=== PATIENT | male | born 1975 | race Caucasian/White ===

== ENCOUNTER 2020-10-30 07:36 | Outpatient (CLI) | payer MEDICARE, MEDICAID, SELFPAY | END 2020-10-30 07:37 | disposition home or self-care (01) | PROVIDERS: PCP Family Medicine; Visit Provider Family Medicine | DX: Z01.10 Encounter for examination of ears and hearing without abnormal findings (principal) | CPT/HCPCS: 99199 ==

== ENCOUNTER 2020-11-21 12:36 | Outpatient (CLI) | payer MEDICARE, MEDICAID, SELFPAY | END 2020-11-21 12:37 | disposition home or self-care (01) | PROVIDERS: PCP Family Medicine; Visit Provider Family Medicine | DX: H90.3 Sensorineural hearing loss, bilateral (principal) | CPT/HCPCS: 92553; 92555; 92567 ==

== ENCOUNTER 2021-12-07 08:17 | Outpatient (CLI) | payer MEDICARE, MEDICAID, SELFPAY | END 2021-12-07 08:18 | disposition home or self-care (01) | LOC: ANHAUDIO 08:19 | PROVIDERS: PCP Family Medicine; Visit Provider Family Medicine | DX: Z01.10 Encounter for examination of ears and hearing without abnormal findings (principal) | CPT/HCPCS: 92553; 92555; 92567 ==

== ENCOUNTER 2022-12-16 08:49 | Outpatient (CLI) | payer MEDICARE, MEDICAID, SELFPAY | END 2022-12-16 08:50 | disposition home or self-care (01) | LOC: ANHAUDIO 08:50 | PROVIDERS: PCP Family Medicine; Visit Provider Family Medicine | DX: H91.93 Unspecified hearing loss, bilateral (principal) | CPT/HCPCS: 92553; 92555; 92567 ==

== ENCOUNTER 2024-01-26 07:59 | Outpatient (CLI) | payer MEDICARE, MEDICAID, SELFPAY | END 2024-01-26 08:00 | disposition home or self-care (01) | LOC: ANHAUDIO 08:00 | PROVIDERS: PCP Family Medicine; Visit Provider Family Medicine | DX: Z01.10 Encounter for examination of ears and hearing without abnormal findings (principal); H90.3 Sensorineural hearing loss, bilateral; H61.23 Impacted cerumen, bilateral | CPT/HCPCS: 92553; 92555; 92567 ==

== ENCOUNTER 2025-01-31 08:48 | Outpatient (CLI) | payer MEDICARE, MEDICAID, SELFPAY ==
--- OUTSIDE RECORDS SUMMARY | 2025-01-31 08:55 | XMS_ITS ---
Author Organization Unknown Address [address] [place] [phone] Phone Care Team Providers Care Price Economist Name Role Phone CONSTANTIN SNEED Attending Unavailable KATHERIN Sanchez Primary Unavailable Immunization Immunization Date Status Additional Notes Code Code System pneumococcal polysaccharide PPV23 01/17/2012 Completed 33 CVX pneumococcal polysaccharide PPV23 06/17/2016 Completed 33 CVX pneumococcal polysaccharide PPV23 07/04/2018 Completed 33 CVX Tdap 06/30/2011 Completed 115 CVX Tdap 03/11/2021 Completed 115 CVX Influenza, split virus, trivalent, preservative 05/16/2024 Completed 141 CVX Influenza, split virus, quadrivalent, preservative 07/15/2017 Completed 158 C VX Influenza, split virus, quadrivalent, preservative 05/24/2018 Completed 158 C VX Influenza, split virus, quadrivalent, preservative 05/23/2019 Completed 158 C VX Influenza, split virus, quadrivalent, preservative 05/14/2020 Completed 158 C VX Influenza, split virus, quadrivalent, preservative 05/20/2021 Completed 158 C VX Influenza, split virus, quadrivalent, preservative 05/12/2022 Completed 158 C VX Influenza, split virus, quadrivalent, preservative 05/11/2023 Completed 158 C VX zoster recombinant 11/08/2024 Completed 187 CVX COVID-19, mRNA, LNP-S, PF, 1 00 mcg/0.5mL dose or 50 mcg/0.25mL dose 08/19/2021 Completed 207 CVX COVID-19, mRNA, LNP-S, PF, 3 0 mcg/0.3 mL dose 09/25/2020 Completed 208 CVX COVID-19, mRNA, LNP-S, PF, 3 0 mcg/0.3 mL dose 10/16/2020 Completed 208 CVX COVID-19, mRNA, LNP-S, bivalent, PF, 30 mcg/0.3 mL dose 11/18/2022 Completed 300 CVX Results COMPREHENSIVE METABOLIC PANE L - Collect Date/Time: 09/11/2024 07:45 [facility] ID: [id number] [address] [place], [place], [phone] LOINC: 69177-1 Test Value Unit Reference Range Code Code System Flag FASTING NO BUN 14 mg/dL L=7 H=20 3094-0 LOINC CREATININE 0.80 mg/dL L=0.66 H=1.25 2160-0 LOINC GLUCOSE 101 mg/dL L=74 H=106 2345-7 LOINC SODIUM 140 mmol/L L=132 H=144 2951-2 LOINC POTASSIUM 3.9 mmol/L L=3.5 H=5.1 2823-3 LOINC CHLORIDE 105 mmol/L L=98 H=107 2075-0 LOINC CO2 23.0 mmol/L L=22.0 H=30.0 8-9 LOINC ANION GAP 16 L=10 H=20 65611-5 LOINC OSMOLALITY 291 mOs/kG L=280 H=296 61329-5 LOINC BUN/CREAT 17.5 3097-3 LOINC CALCIUM 9.0 mg/dL L=8.3 H=10.5 75780-1 LOINC AST 39 U/L L=15 H=46 1920-8 LOINC ALT 33 U/L L=9 H=72 1742-6 LOINC ALKALINE PHOS 190 U/L L=38 H=126 6768-6 LOINC H TOTAL BILI 0.4 mg/dL L=0.2 H=1.3 1975-2 LOINC ALBUMIN 4.3 G/dL L=3.5 H=5.0 1751-7 LOINC TOTAL PROTEIN 6.3 g/L L=6.3 H=8.2 2885-2 LOINC A/G RATIO 2.2 98668-7 LOINC AGE 49 35194-9 LOINC eGFR NON-AFR 109 ml/min eGFR AFR AMER 132 ml/min TSH - Collect Date/Time: 03/2025 07:45 [facility] ID: [id number] [address] [place] [address], [phone] LOINC: 48245-4 Test Value Unit Reference Range Code Code System Flag TSH. 3.910 uIU/L L=0.470 H=4.680 06330-8 LOINC LIPID PANEL - Collect Date/T slime: 09/11/2024 07:45 [facility] ID: [id number] [address] [place] [address], [phone] LOINC: 29017-7 Test Value Unit Reference Range Code Code System Flag FASTING NO CHOLESTEROL 89 mg/dL L=0 H=200 2093-3 LOINC TRIGLYCERIDE 82 mg/dL L=0 H=150 2571-8 LOINC HDL 31 mg/dL L=40 H=60 2085-9 LOINC L LDL 41 mg/dL 9-1 LOINC 25 HYDROXY VITAMIN D - Colle ct Date/Time: 09/11/2024 07:45 [facility] ID: [id number] [address] [place] [address], [phone] LOINC: Test Value Unit Reference Range Code Code System Flag VITAMIN D 51.9 ng/ml L=30.0 H=100 78302-7 LOINC PSA-SCREENING - Collect Date /Time: 09/11/2024 07:45 [facility] ID: [id number] [place] [address], [phone] LOINC: 2857-1 Test Value Unit Reference Range Code Code System Flag PSA SCREEN 1.2 ng/mL L=0.0 H=4.0 2857-1 LOINC LAMICTAL LEVEL - Collect [place] e/Time: 09/11/2024 07:45 [facility] ID: [id number] [address] [place], [place], [phone] LOINC: 6948-4 Test Value Unit Reference Range Code Code System Flag Lamotrigine, Serum 8.4 2.0-20.0 6948-4 LOINC BK BY PCR - QUANT(PLASMA) (R EF) - Collect Date/Time: 09/11/2024 07:45 [facility] ID: [id number] [address] [place] [address], [phone] LOINC: 32448-2 Test Value Unit Reference Range Code Code System Flag BKV DNA, Quant PCR,Plasma Negative Negative 33052-4 LOINC log10 BKV DNA,Plasma TNP 82061-4 LOINC PTH - Collect Date/Time: 03/2025 07:45 [facility] ID: [id number] [address] [place] [address], [phone] LOINC: 2731-8 Test Value Unit Reference Range Code Code System Flag PTH, Intact 24 15-65 2731-8 LOINC CBC W/ DIFF - Collect Date/T slime: 09/11/2024 07:45 [facility] ID: [id number] [address] [place] [address], [phone] LOINC: 52753-3 Test Value Unit Reference Range Code Code System Flag WBC 6.5 10^3uL L=4.8 H=10.8 RBC 4.20 10^6uL L=4.60 H=6.20 L HEMOGLOBIN 12.7 g/dL L=14.0 H=18.0 718-7 LOINC L HEMATOCRIT 39.2 VOL% L=42.0 H=52.0 4544-3 LOINC L MCV 93.3 fL L=80.0 H=94.0 MCH 30.2 pg L=27.0 H=32.0 MCHC 32.4 g/dL L=32.0 H=36.0 PLATELETS 164 10^3uL L=100 H=400 92382-2 LOINC RDW 14.4 % L=11.7 H=15.5 %GRAN 73.6 % L=40.0 H=70.0 39903-3 LOINC H %LYMPH 16.8 % L=20.0 H=45.0 736-9 LOINC L %MONO 6.8 % L=2.0 H=10.0 36708-8 LOINC %EOS 2.3 % L=0.0 H=6.0 713-8 LOINC %BASO 0.2 % L=0.0 H=3.0 706-2 LOINC #NEUT 4.8 10^3uL L=1.9 H=7.6 74397-4 LOINC #LYMPH 1.1 10^3uL L=0.9 H=4.9 24092-7 LOINC #MONO 0.4 10^3uL L=0.1 H=0.9 00403-7 LOINC #EOS 0.2 10^3uL L=0.0 H=0.6 712-0 LOINC #BASO 0.01 10^3uL L=0.00 H=0.10 11448-5 LOINC #IM GRANS 0.0 10^3uL L=0.0 H=7.0 33072-9 LOINC %IM GRANS 0.3 % L=0.0 H=5.0 15295-2 LOINC %NRB 0.0 L=0.0 H=0.2 89886-0 LOINC #NRB 0.000 L=0.000 H=0.012 71210-3 LOINC MANUAL DIFF NOT INDICATED RBC MORPH NOT INDICATED FK-506 - Collect Date/Time: 09/11/2024 07:45 [facility] ID: [id number] [address] [place], [place], [phone] LOINC: 67277-3 Test Value Unit Reference Range Code Code System Flag Tacrolimus (FK506), Blood 10.4 2.0-20.0 28450-8 LOINC PHOSPHORUS - Collect Date/Ti me: 09/11/2024 07:45 [facility] ID: [id number] [address] [place], [place], [phone] LOINC: 2777-1 Test Value Unit Reference Range Code Code System Flag PHOSPHORUS 2.7 mg/dL L=2.5 H=4.9 2777-1 LOINC BK VIRUS - URINE QUANT BY PC R(REF) - Collect Date/Time: 09/11/2024 07:00 [facility] ID: [id number] [address] [place], [place], [phone] LOINC: 78836-2 Test Value Unit Reference Range Code Code System Flag BKV DNA, Quant PCR, Urine 1740 Negative 46382-7 LOINC log10 BKV DNA, Urine 3.241 23723-3 LOINC URINALYSIS w/Microscopy/C&S if indicated - Collect Date/Time: 09/11/2024 07:00 [facility] ID: [id number] [address] [place], [place], [phone] LOINC: 54392-7 Test Value Unit Reference Range Code Code System Flag UR SOURCE CLEAN CATCH 02790-0 LOINC COLOR YELLOW YELLOW 5778-6 LOINC CLARITY SL CLOUDY CLEAR 25873-9 LOINC SPEC GRAVITY 1.015 1.000-1.030 5811-5 LOINC PH 6.0 5.0 - 6.5 5803-2 LOINC LEUK EST NEGATIVE NEGATIVE 5799-2 LOINC NITRATE NEGATIVE NEGATIVE PROTEIN NEGATIVE NEGATIVE 5804-0 LOINC GLUCOSE NEGATIVE NEGATIVE 29305-6 LOINC KETONES NEGATIVE NEGATIVE 76183-7 LOINC UROBILINOGEN 0.2 0.2 - 1.0 5818-0 LOINC BILIRUBIN NEGATIVE NEGATIVE 92488-9 LOINC BLOOD 3+ NEGATIVE 22338-6 LOINC WBC 0-2 0 - 2 10689-2 LOINC RBC 10-20 0 - 2 03439-5 LOINC A EPITHELIAL RARE RARE-FEW 18456-7 LOINC BACTERIA NONE SEEN NONE SEEN 36365-5 LOINC MUCUS NONE SEEN NONE SEEN 8247-9 LOINC YEAST NOT PRESENT NOT PRESENT 29715-7 LOINC TRICHOMONAS NOT PRESENT NOT PRESENT 70516-8 LOINC SPERMATOZOA NOT PRESENT NOT PRESENT 21286-2 LOINC CASTS NOT PRESENT 32449-6 LOINC CRYSTALS NOT PRESENT 83063-6 LOINC CULTURE? NO 8251-1 LOINC DIAGNOSIS N/A MICROALBUMIN - Collect Date/ Time: 09/11/2024 07:00 [facility] ID: [id number] [address] [place], [place], [phone] LOINC: 03274-5 Test Value Unit Reference Range Code Code System Flag MICROALBUMIN 50.9 mg/L L=0.0 H=16.7 85280-6 LOINC H UR CREATININE 55.60 mg/dL L=30.00 H=125 2161-8 LOINC MA/CR 91.5 mg/gCR Social History Type Status Start Date End Date Code Code Syst em Smoking History Never smoker (Never Smoked) [id number] SNOMED CT Sex Male Medications Medication Start Date End Date Route Frequency Dose Code Code System Medication Instructions Home Meds Calcitriol 0.25MCG Oral Capsule, Liquid Filled 10/02/2021 Unknown ORAL THREE TIMES EVERY WEEK 0.25 MCG 320890 RxNorm TAKE 0.25 MCG ORAL THREE TIMES EVERY WEEK Fish Oil 1200 MG Oral Capsule, Liquid Filled 10/02/2021 Unknown ORAL TWICE A DAY 1200 MG 268107 RxNorm TAKE 1200 MG ORAL TWICE A DAY Metoprolol Succinate 25MG Oral Tablet, Extended Release 10/02/2021 Unknown ORAL TWICE A DAY 25 MILLIGRAMS 758348 RxNorm TAKE 25 MILLIGRAMS ORAL TWICE A DAY Mycophenolate Mofetil 250MG Oral Capsule 10/02/2021 Unknown ORAL TWICE A DAY 250 MILLIGRAMS 926088 RxNorm TAKE 250 MILLIGRAMS ORAL TWICE A DAY Mycophenolate Mofetil 500MG Oral Tablet 10/02/2021 Unknown ORAL TWICE A DAY 500 MILLIGRAMS 851699 RxNorm TAKE 500 MILLIGRAMS ORAL TWICE A DAY Pantoprazole Sodium 20 MG Oral Tablet, Delayed Release 10/02/2021 Unknown ORAL ONCE A DAY 20 MG 219757 RxNorm TAKE 20 MG ORAL ONCE A DAY Sensipar 30MG Oral Tablet 10/02/2021 Unknown ORAL ONCE A DAY 30 MILLIGRAMS 903741 RxNorm TAKE 30 MILLIGRAMS ORAL ONCE A DAY Sertraline 50MG Oral Tablet 10/02/2021 Unknown ORAL TWICE A DAY 50 MILLIGRAMS 778923 RxNorm TAKE 50 MILLIGRAMS ORAL TWICE A DAY Tacrolimus 0.5MG Oral Capsule 10/02/2021 Unknown ORAL ONCE A DAY 0.5 MILLIGRAMS 216419 RxNorm TAKE 0.5 MILLIGRAMS ORAL ONCE A DAY Tacrolimus 1MG Oral Capsule 10/02/2021 Unknown ORAL ONCE A DAY 1 MILLIGRAMS 919368 RxNorm TAKE 1 MILLIGRAMS ORAL ONCE A DAY Tylenol 325MG Oral Tablet 10/02/2021 Unknown ORAL NEEDED EVERY 4 HOURS 2 TABLET 255794 RxNorm TAKE 2 TABLET ORAL NEEDED EVERY 4 HOURS Vitamin D3 5000 IU Oral Capsule, Liquid Filled 10/02/2021 Unknown ORAL ONCE A DAY 5000 IU RxNorm TAKE 5000 IU ORAL ONCE A DAY lamoTRIgine 100MG Oral Tablet 10/02/2021 Unknown ORAL ONCE A DAY 200 MILLIGRAMS 19831012 RxNorm TAKE 200 MILLIGRAMS ORAL ONCE A DAY lamoTRIgine 100MG Oral Tablet 10/02/2021 Unknown ORAL AT BEDTIME 100 MILLIGRAMS 19831012 RxNorm TAKE 100 MILLIGRAMS ORAL AT BEDTIME predniSONE 5MG Oral Tablet 10/02/2021 Unknown ORAL ONCE A DAY 5 MILLIGRAMS 091606 RxNorm TAKE 5 MILLIGRAMS ORAL ONCE A DAY risperiDONE 2MG Oral Tablet 10/02/2021 Unknown ORAL TWICE A DAY 5 MILLIGRAMS 309100 RxNorm TAKE 5 MILLIGRAMS ORAL TWICE A DAY Hospital Discharge Instructions Should you have any questions prior to discharge, please contact a member of your healthcare team. If you have left the hospital and have any questions, please contact your primary care physician. 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
--- OUTSIDE RECORDS SUMMARY | 2025-01-31 08:55 | XMS_ITS ---
Author Organization Unknown Address [address] [place] [phone] Phone Care Team Providers Care Electrician Master Name Role Phone CONSTANTIN SNEED Attending Unavailable [...] mL dose 11/18/2022 Completed 300 CVX Results LAMICTAL LEVEL - Collect [place] e/Time: 01/14/2025 07:25 [facility] ID: [id number] [place] [address], [phone] LOINC: 6948-4 Test Value Unit Reference Range Code Code System Flag Lamotrigine, Serum 9.7 2.0-20.0 6948-4 LOINC FK-506 - Collect Date/Time: 01/14/2025 07:25 [facility] ID: [id number] [place] [address], [phone] LOINC: 84358-6 Test Value Unit Reference Range Code Code System Flag Tacrolimus (FK506), Blood 10.0 5.0-20.0 40835-1 LOINC CBC W/ DIFF - Collect Date/T slime: 01/14/2025 07:25 [facility] ID: [id number] [place] [address], [phone] LOINC: 73494-2 Test Value Unit Reference Range Code Code System Flag WBC 5.6 10^3uL L=4.8 H=10.8 RBC 4.27 10^6uL L=4.60 H=6.20 L HEMOGLOBIN 12.6 g/dL L=14.0 H=18.0 718-7 LOINC L HEMATOCRIT 40.0 VOL% L=42.0 H=52.0 4544-3 LOINC L MCV 93.7 fL L=80.0 H=94.0 MCH 29.5 pg L=27.0 H=32.0 MCHC 31.5 g/dL L=32.0 H=36.0 L PLATELETS 187 10^3uL L=100 H=400 07839-3 LOINC RDW 13.6 % L=11.7 H=15.5 %GRAN 66.6 % L=40.0 H=70.0 12813-8 LOINC %LYMPH 21.9 % L=20.0 H=45.0 736-9 LOINC %MONO 8.4 % L=2.0 H=10.0 80634-5 LOINC %EOS 2.5 % L=0.0 H=6.0 713-8 LOINC %BASO 0.2 % L=0.0 H=3.0 706-2 LOINC #NEUT 3.7 10^3uL L=1.9 H=7.6 75570-7 LOINC #LYMPH 1.2 10^3uL L=0.9 H=4.9 15633-5 LOINC #MONO 0.5 10^3uL L=0.1 H=0.9 79360-4 LOINC #EOS 0.1 10^3uL L=0.0 H=0.6 712-0 LOINC #BASO 0.01 10^3uL L=0.00 H=0.10 70894-3 LOINC #IM GRANS 0.0 10^3uL L=0.0 H=7.0 55870-7 LOINC %IM GRANS 0.4 % L=0.0 H=5.0 57394-9 LOINC %NRB 0.0 L=0.0 H=0.2 21592-1 LOINC #NRB 0.000 L=0.000 H=0.012 67795-8 LOINC MANUAL DIFF NOT INDICATED RBC MORPH NOT INDICATED BK BY PCR - QUANT(PLASMA) (R EF) - Collect Date/Time: 01/14/2025 07:25 [facility] ID: [id number] [address] [place], [place], [phone] LOINC: 37887-0 Test Value Unit Reference Range Code Code System Flag BKV DNA, Quant PCR,Plasma Negative Negative 73427-0 LOINC log10 BKV DNA,Plasma TNP 32169-3 LOINC RENAL FUNCTION PANEL - Colle ct Date/Time: 01/14/2025 07:25 [facility] ID: [id number] [place], [place], [id number] LOINC: 15517-6 Test Value Unit Reference Range Code Code System Flag FASTING? NO BUN 18 mg/dL L=7 H=20 3094-0 LOINC CREATININE 0.80 mg/dL L=0.66 H=1.25 2160-0 LOINC GLUCOSE 113 mg/dL L=74 H=106 2345-7 LOINC H CALCIUM 8.7 mg/dL L=8.3 H=10.5 87978-9 LOINC SODIUM 140 mmol/L L=132 H=144 2951-2 LOINC POTASSIUM 3.9 mmol/L L=3.5 H=5.1 2823-3 LOINC CHLORIDE 108 mmol/L L=98 H=107 2075-0 LOINC H CO2 20.0 mmol/L L=22.0 H=30.0 2028-9 LOINC L ANION GAP 16 L=10 H=20 19901-3 LOINC OSMOLALITY 293 mOs/kG L=280 H=296 46916-9 LOINC BUN/CREAT 22.5 3097-3 LOINC PHOSPHORUS 2.9 mg/dL L=2.5 H=4.9 2777-1 LOINC ALBUMIN 4.1 G/dL L=3.5 H=5.0 1751-7 LOINC AGE 49 63240-7 LOINC eGFR NON-AFR 109 ml/min eGFR AFR AMER 132 ml/min BK VIRUS - URINE QUANT BY SANTIAGO Guajardo(REF) - Collect Date/Time: 01/14/2025 06:00 [facility] ID: [id number] [place], [place], [phone] LOINC: 87096-4 Test Value Unit Reference Range Code Code System Flag BKV DNA, Quant PCR, Urine 576 Negative 27979-3 LOINC log10 BKV DNA, Urine 2.760 30942-9 LOINC MICROALBUMIN - Collect Date/ Time: 01/14/2025 06:00 [facility] ID: [id number] [place], [place], [id number] LOINC: 06217-9 Test Value Unit Reference Range Code Code System Flag MICROALBUMIN 26.3 mg/L L=0.0 H=16.7 33528-1 LOINC H UR CREATININE 101.80 mg/dL L=30.00 H=125 2161-8 LOINC MA/CR 25.8 mg/gCR Social History Type Status Start Date End Date Code Code Syst em Smoking History Never smoker (Never Smoked) [id number] SNOMED CT Sex Male Medications Medication Start Date End Date Route Frequency Dose Code Code System Medication Instructions Home Meds Calcitriol 0.25MCG Oral Capsule, Liquid Filled 10/02/2021 Unknown ORAL THREE TIMES EVERY WEEK 0.25 MCG 078187 RxNorm TAKE 0.25 MCG ORAL THREE TIMES EVERY WEEK Fish Oil 1200 MG Oral Capsule, Liquid Filled 10/02/2021 Unknown ORAL TWICE A DAY 1200 MG 666131 RxNorm TAKE 1200 MG ORAL TWICE A DAY Metoprolol Succinate 25MG Oral Tablet, Extended Release 10/02/2021 Unknown ORAL TWICE A DAY 25 MILLIGRAMS 828084 RxNorm TAKE 25 MILLIGRAMS ORAL TWICE A DAY Mycophenolate Mofetil 250MG Oral Capsule 10/02/2021 Unknown ORAL TWICE A DAY 250 MILLIGRAMS 973894 RxNorm TAKE 250 MILLIGRAMS ORAL TWICE A DAY Mycophenolate Mofetil 500MG Oral Tablet 10/02/2021 Unknown ORAL TWICE A DAY 500 MILLIGRAMS 468512 RxNorm TAKE 500 MILLIGRAMS ORAL TWICE A DAY Pantoprazole Sodium 20 MG Oral Tablet, Delayed Release 10/02/2021 Unknown ORAL ONCE A DAY 20 MG 541585 RxNorm TAKE 20 MG ORAL ONCE A DAY Sensipar 30MG Oral Tablet 10/02/2021 Unknown ORAL ONCE A DAY 30 MILLIGRAMS 413664 RxNorm TAKE 30 MILLIGRAMS ORAL ONCE A DAY Sertraline 50MG Oral Tablet 10/02/2021 Unknown ORAL TWICE A DAY 50 MILLIGRAMS 243104 RxNorm TAKE 50 MILLIGRAMS ORAL TWICE A DAY Tacrolimus 0.5MG Oral Capsule 10/02/2021 Unknown ORAL ONCE A DAY 0.5 MILLIGRAMS 280934 RxNorm TAKE 0.5 MILLIGRAMS ORAL ONCE A DAY Tacrolimus 1MG Oral Capsule 10/02/2021 Unknown ORAL ONCE A DAY 1 MILLIGRAMS 19830311 RxNorm TAKE 1 MILLIGRAMS ORAL ONCE A DAY Tylenol 325MG Oral Tablet 10/02/2021 Unknown ORAL NEEDED EVERY 4 HOURS 2 TABLET 429808 RxNorm TAKE 2 TABLET ORAL NEEDED EVERY [...] Unknown ORAL ONCE A DAY 5 MILLIGRAMS 078778 RxNorm TAKE 5 MILLIGRAMS ORAL ONCE A DAY risperiDONE 2MG Oral Tablet 10/02/2021 Unknown ORAL TWICE A DAY 5 MILLIGRAMS 909602 RxNorm TAKE 5 MILLIGRAMS ORAL TWICE A [...] System CIPROFLOXACIN Active 2551 RxNorm PARICALCITOL Active 76306 RxNorm ZEMPLAR Active 302427 RxNorm Plan of Treatment Bone Density Dexa 11/26/2022 Bone Density Dexa 12/14/2024 Encounters Encounter Diagnosis Start Date Code Code 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
--- OUTSIDE RECORDS SUMMARY | 2025-01-31 08:56 | XMS_ITS ---
Author Organization Unknown Address [address] [place] [phone] Phone Care Team Providers Care Doctor Of Audiology Name Role Phone CONSTANTIN SNEED Attending Unavailable [...] mL dose 11/18/2022 Completed 300 CVX Results RENAL FUNCTION PANEL - Colle ct Date/Time: 02/28/2024 07:00 [facility] ID: [id number] [address] [place], [place], [phone] LOINC: 89749-9 Test Value Unit Reference Range Code Code System Flag FASTING? YES BUN 20 mg/dL L=7 H=20 3094-0 LOINC CREATININE 0.80 mg/dL L=0.66 H=1.25 2160-0 LOINC GLUCOSE 80 mg/dL L=74 H=106 2345-7 LOINC CALCIUM 9.1 mg/dL L=8.3 H=10.5 32585-3 LOINC SODIUM 139 mmol/L L=132 H=144 2951-2 LOINC POTASSIUM 4.0 mmol/L L=3.5 H=5.1 2823-3 LOINC CHLORIDE 108 mmol/L L=98 H=107 2075-0 LOINC H CO2 26.0 mmol/L L=22.0 H=30.0 2028-9 LOINC ANION GAP 9 L=10 H=20 11789-0 LOINC L BUN/CREAT 25.0 3097-3 LOINC PHOSPHORUS 3.1 mg/dL L=2.5 H=4.9 2777-1 LOINC ALBUMIN 3.8 G/dL L=3.5 H=5.0 1751-7 LOINC AGE 48 27835-6 LOINC eGFR NON-AFR 109 ml/min eGFR AFR AMER 132 ml/min LAMICTAL LEVEL - Collect [place] e/Time: 02/28/2024 07:00 [facility] ID: [id number] [address] [place], [place], [phone] LOINC: 6948-4 Test Value Unit Reference Range Code Code System Flag Lamotrigine, Serum 7.9 2.0-20.0 6948-4 LOINC FK-506 - Collect Date/Time: 02/28/2024 07:00 [facility] ID: [id number] [address] [place] [address], [phone] LOINC: 57605-6 Test Value Unit Reference Range Code Code System Flag Tacrolimus (FK506), Blood 6.8 2.0-20.0 13001-0 LOINC BK BY PCR - QUANT(PLASMA) (R EF) - Collect Date/Time: 02/28/2024 07:00 [facility] ID: [id number] [address] [place] [address], [id number] LOINC: 11120-9 Test Value Unit Reference Range Code Code System Flag BKV DNA, Quant PCR,Plasma Negative Negative 60180-8 LOINC log10 BKV DNA,Plasma TNP 43872-0 LOINC BK VIRUS - URINE QUANT BY PC R(REF) - Collect Date/Time: 02/28/2024 07:00 [facility] ID: [id number] [address] [place] [address], [phone] LOINC: 04410-5 Test Value Unit Reference Range Code Code System Flag BKV DNA, Quant PCR, Urine 5840 Negative 64531-1 LOINC log10 BKV DNA, Urine 3.766 12927-0 LOINC MICROALBUMIN - Collect Date/ Time: 02/28/2024 07:00 [facility] ID: [id number] [address] [place] [address], [phone] LOINC: 42636-1 Test Value Unit Reference Range Code Code System Flag MICROALBUMIN 28.8 mg/L L=0.0 H=16.7 43264-3 LOINC H UR CREATININE 82.50 mg/dL L=30.00 H=125 2161-8 LOINC MA/CR 34.9 mg/gCR CBC W/ DIFF - Collect Date/T slime: 02/28/2024 07:00 [facility] ID: [id number] [address] [place], [place], [phone] LOINC: 46885-1 Test Value Unit Reference Range Code Code System Flag WBC 5.0 10^3uL L=4.8 H=10.8 RBC 3.91 10^6uL L=4.60 H=6.20 L HEMOGLOBIN 11.7 g/dL L=14.0 H=18.0 718-7 LOINC L HEMATOCRIT 36.1 VOL% L=42.0 H=52.0 4544-3 LOINC L MCV 92.3 fL L=80.0 H=94.0 MCH 29.9 pg L=27.0 H=32.0 MCHC 32.4 g/dL L=32.0 H=36.0 PLATELETS 201 10^3uL L=100 H=400 14903-7 LOINC RDW 13.3 % L=11.7 H=15.5 %GRAN 62.3 % L=40.0 H=70.0 10938-6 LOINC %LYMPH 24.8 % L=20.0 H=45.0 736-9 LOINC %MONO 9.1 % L=2.0 H=10.0 21624-1 LOINC %EOS 3.0 % L=0.0 H=6.0 713-8 LOINC %BASO 0.2 % L=0.0 H=3.0 706-2 LOINC #NEUT 3.1 10^3uL L=1.9 H=7.6 19414-2 LOINC #LYMPH 1.3 10^3uL L=0.9 H=4.9 18219-5 LOINC #MONO 0.5 10^3uL L=0.1 H=0.9 21712-9 LOINC #EOS 0.2 10^3uL L=0.0 H=0.6 712-0 LOINC #BASO 0.01 10^3uL L=0.00 H=0.10 68967-7 LOINC #IM GRANS 0.0 10^3uL L=0.0 H=7.0 14522-3 LOINC %IM GRANS 0.6 % L=0.0 H=5.0 32801-7 LOINC %NRB 0.0 L=0.0 H=0.2 93055-3 LOINC #NRB 0.000 L=0.000 H=0.012 21239-9 LOINC MANUAL DIFF NOT INDICATED RBC MORPH NOT INDICATED Social History Type Status Start Date End Date Code Code Syst em Smoking History Never smoker (Never Smoked) 538040876 SNOMED CT Sex Male Medications Medication Start Date End Date Route Frequency Dose Code Code System Medication Instructions Home Meds Calcitriol 0.25MCG Oral Capsule, Liquid Filled 10/02/2021 Unknown ORAL THREE TIMES EVERY WEEK 0.25 MCG 402007 RxNorm TAKE 0.25 MCG ORAL THREE TIMES EVERY WEEK Fish Oil 1200 MG Oral Capsule, Liquid Filled 10/02/2021 Unknown ORAL TWICE A DAY 1200 MG 920663 RxNorm TAKE 1200 MG ORAL TWICE A DAY Metoprolol Succinate 25MG Oral Tablet, Extended Release 10/02/2021 Unknown ORAL TWICE A DAY 25 MILLIGRAMS 334885 RxNorm TAKE 25 MILLIGRAMS ORAL TWICE A DAY Mycophenolate Mofetil 250MG Oral Capsule 10/02/2021 Unknown ORAL TWICE A DAY 250 MILLIGRAMS 741136 RxNorm TAKE 250 MILLIGRAMS ORAL TWICE A DAY Mycophenolate Mofetil 500MG Oral Tablet 10/02/2021 Unknown ORAL TWICE A DAY 500 MILLIGRAMS 667896 RxNorm TAKE 500 MILLIGRAMS ORAL TWICE A DAY Pantoprazole Sodium 20 MG Oral Tablet, Delayed Release 10/02/2021 Unknown ORAL ONCE A DAY 20 MG 954934 RxNorm TAKE 20 MG ORAL ONCE A DAY Sensipar 30MG Oral Tablet 10/02/2021 Unknown ORAL ONCE A DAY 30 MILLIGRAMS 155144 RxNorm TAKE 30 MILLIGRAMS ORAL ONCE A DAY Sertraline 50MG Oral Tablet 10/02/2021 Unknown ORAL TWICE A DAY 50 MILLIGRAMS 085556 RxNorm TAKE 50 MILLIGRAMS ORAL TWICE A DAY Tacrolimus 0.5MG Oral Capsule 10/02/2021 Unknown ORAL ONCE A DAY 0.5 MILLIGRAMS 315821 RxNorm TAKE 0.5 MILLIGRAMS ORAL ONCE A DAY Tacrolimus 1MG Oral Capsule 10/02/2021 Unknown ORAL ONCE A DAY 1 MILLIGRAMS 148670 RxNorm TAKE 1 MILLIGRAMS ORAL ONCE A DAY Tylenol 325MG Oral Tablet 10/02/2021 Unknown ORAL NEEDED EVERY 4 HOURS 2 TABLET 906558 RxNorm TAKE 2 TABLET ORAL NEEDED EVERY [...] Unknown ORAL ONCE A DAY 5 MILLIGRAMS 932883 RxNorm TAKE 5 MILLIGRAMS ORAL ONCE A DAY risperiDONE 2MG Oral Tablet 10/02/2021 Unknown ORAL TWICE A DAY 5 MILLIGRAMS 808739 RxNorm TAKE 5 MILLIGRAMS ORAL TWICE A [...] System CIPROFLOXACIN Active 2551 RxNorm PARICALCITOL Active 32812 RxNorm ZEMPLAR Active 062917 RxNorm Plan of Treatment Bone Density Dexa 11/26/2022 Bone Density Dexa 12/14/2024 Encounters Encounter Diagnosis Start Date Code Code Sys tem Transplanted kidney present 02/28/2024 [id number] SNOMED-CT Personal Care Team Section Performer Name Performer Role Active Date Inactive Da te
--- OUTSIDE RECORDS SUMMARY | 2025-01-31 08:56 | XMS_ITS ---
Author Organization Unknown Address [address] [place] [phone] Phone Care Team Providers Care Illuminating Engineer Name Role Phone CONSTANTIN SNEED Attending Unavailable [...] COMPREHENSIVE METABOLIC PANE L - Collect Date/Time: 09/13/2023 07:35 [facility] ID: [id number] [address] [place], [place], [phone] LOINC: 41458-5 Test Value Unit Reference Range Code Code System Flag FASTING NO BUN 17 mg/dL L=7 H=20 3094-0 LOINC CREATININE 0.80 mg/dL L=0.66 H=1.25 2160-0 LOINC GLUCOSE 95 mg/dL L=74 H=106 2345-7 LOINC SODIUM 142 mmol/L L=132 H=144 2951-2 LOINC POTASSIUM 3.8 mmol/L L=3.5 H=5.1 2823-3 LOINC CHLORIDE 110 mmol/L L=98 H=107 2075-0 LOINC H CO2 20.0 mmol/L L=22.0 H=30.0 2028-9 LOINC L ANION GAP 16 L=10 H=20 85185-6 LOINC OSMOLALITY 295 mOs/kG L=280 H=296 41824-8 LOINC BUN/CREAT 21.3 3097-3 LOINC CALCIUM 9.2 mg/dL L=8.3 H=10.5 72722-4 LOINC AST 41 U/L L=15 H=46 1920-8 LOINC ALT 30 U/L L=9 H=72 1742-6 LOINC ALKALINE PHOS 171 U/L L=38 H=126 6768-6 LOINC H TOTAL BILI 0.4 mg/dL L=0.2 H=1.3 1975-2 LOINC ALBUMIN 4.0 G/dL L=3.5 H=5.0 1751-7 LOINC TOTAL PROTEIN 6.5 g/L L=6.3 H=8.2 2885-2 LOINC A/G RATIO 1.6 38815-8 LOINC AGE 48 18830-9 LOINC eGFR NON-AFR 109 ml/min eGFR AFR AMER 132 ml/min LIPID PANEL - Collect Date/T slime: 09/13/2023 07:35 [facility] ID: [id number] [address] [place] [address], [id number] LOINC: 32952-9 Test Value Unit Reference Range Code Code System Flag FASTING NO CHOLESTEROL 90 mg/dL L=0 H=200 3-3 LOINC TRIGLYCERIDE 73 mg/dL L=0 H=150 1-8 LOINC HDL 27 mg/dL L=40 H=60 2084-9 LOINC L LDL 49 mg/dL 2088-1 LOINC TSH - Collect Date/Time: 05/2024 07:35 [facility] ID: [id number] [address] [place] [address], [id number] LOINC: 02506-7 Test Value Unit Reference Range Code Code System Flag TSH. 3.500 uIU/L L=0.470 H=4.680 65066-3 LOINC PHOSPHORUS - Collect Date/Ti me: 09/13/2023 07:35 [facility] ID: [id number] [address] [place] [address], [id number] LOINC: 2777-1 Test Value Unit Reference Range Code Code System Flag PHOSPHORUS 2.8 mg/dL L=2.5 H=4.9 2777-1 LOINC PTH - Collect Date/Time: 05/2024 07:35 [facility] ID: [id number] [address] [place] [address], [phone] LOINC: 2731-8 Test Value Unit Reference Range Code Code System Flag PTH, Intact 58 15-65 2731-8 LOINC LAMICTAL LEVEL - Collect Zurdo e/Time: 09/13/2023 07:35 [facility] ID: [id number] [place], [place], [id number] LOINC: 6948-4 Test Value Unit Reference Range Code Code System Flag Lamotrigine, Serum 6.8 2.0-20.0 6948-4 LOINC PROTEIN ELECTROPHORESIS SERU M - Collect Date/Time: 09/13/2023 07:35 [facility] ID: [id number] [place], [place], [id number] LOINC: 2885-2 Test Value Unit Reference Range Code Code System Flag Protein, Total 6.1 6.0-8.5 2885-2 LOINC Albumin 3.7 2.9-4.4 2862-1 LOINC Opqls-2-Xnhocspu 0.3 0.0-0.4 2865-4 LOINC Udhjq-5-Gdnmvunc 0.6 0.4-1.0 2868-8 LOINC Beta Globulin 0.7 0.7-1.3 2871-2 LOINC Gamma Globulin 0.8 0.4-1.8 2874-6 LOINC M-Jose Not Observed Not Observed 33921-9 LOINC Globulin, Total 2.4 2.2-3.9 09401-3 LOINC A/G Ratio 1.5 0.7-1.7 1759-0 LOINC Please note: COMMENT 72285-6 LOINC P E Interpretation, S COMMENT 68234-5 LOINC PDF . 22781-5 LOINC FREE LIGHT CHAINS SERUM - Co llect Date/Time: 09/13/2023 07:35 [facility] ID: [id number] [place], [place], [id number] LOINC: 11349-9 Test Value Unit Reference Range Code Code System Flag Free Gallup Lt Chains,S 45.0 3.3-19.4 27505-1 LOINC H Free Lambda Lt Chains,S 43.1 5.7-26.3 45016-0 LOINC H Gallup/Lambda Ratio,S 1.04 0.26-1.65 52323-8 LOINC IMMUNOGLOBULINS QUANT IGA & IGG & IGM - Collect Date/Time: 09/13/2023 07:35 [facility] ID: [id number] [address] [place] [address], [id number] LOINC: Test Value Unit Reference Range Code Code System Flag Immunoglobulin A, Qn,Serum 135 90-386 2458-8 LOINC Immunoglobulin G, Qn,Serum 262 909-4169 2465-3 LOINC Immunoglobulin M, Qn,Serum 102 20-172 2472-9 LOINC BK BY PCR - QUANT(PLASMA) (R EF) - Collect Date/Time: 09/13/2023 07:35 [facility] ID: [id number] [address] [place] [address], [id number] LOINC: 03081-2 Test Value Unit Reference Range Code Code System Flag BKV DNA, Quant PCR,Plasma Negative Negative 69532-9 LOINC log10 BKV DNA,Plasma TNP 13158-7 LOINC BK VIRUS - URINE QUANT BY PC R(REF) - Collect Date/Time: 09/13/2023 07:35 [facility] ID: [id number] [address] [place] [address], [id number] LOINC: 07241-3 Test Value Unit Reference Range Code Code System Flag BKV DNA, Quant PCR, Urine 361 Negative 98353-2 LOINC log10 BKV DNA, Urine 2.558 82041-4 LOINC FK-506 - Collect Date/Time: 09/13/2023 07:35 [facility] ID: [id number] [address] [place] [address], [id number] LOINC: 54755-4 Test Value Unit Reference Range Code Code System Flag Tacrolimus (FK506), Blood 7.4 2.0-20.0 53240-6 LOINC 25 HYDROXY VITAMIN D - Colle ct Date/Time: 09/13/2023 07:35 [facility] ID: [id number] [address] [place], [place], [id number] LOINC: Test Value Unit Reference Range Code Code System Flag VITAMIN D 67.9 ng/ml L=30.0 H=100 09289-2 LOINC MICROALBUMIN - Collect Date/ Time: 09/13/2023 07:35 [facility] ID: [id number] [address] [place] [address], [id number] LOINC: 01459-5 Test Value Unit Reference Range Code Code System Flag MICROALBUMIN 17.2 mg/L L=0.0 H=16.7 26819-4 LOINC H UR CREATININE 96.20 mg/dL L=30.00 H=125 2161-8 LOINC MA/CR 17.9 mg/gCR CBC W/ DIFF - Collect Date/T slime: 09/13/2023 07:35 [facility] ID: [id number] [address] [place] [address], [phone] LOINC: 83097-7 Test Value Unit Reference Range Code Code System Flag WBC 4.0 10^3uL L=4.8 H=10.8 L RBC 4.18 10^6uL L=4.60 H=6.20 L HEMOGLOBIN 12.6 g/dL L=14.0 H=18.0 718-7 LOINC L HEMATOCRIT 38.9 VOL% L=42.0 H=52.0 4544-3 LOINC L MCV 93.1 fL L=80.0 H=94.0 MCH 30.1 pg L=27.0 H=32.0 MCHC 32.4 g/dL L=32.0 H=36.0 PLATELETS 177 10^3uL L=100 H=400 57057-4 LOINC RDW 13.3 % L=11.7 H=15.5 %GRAN 63.8 % L=40.0 H=70.0 11590-5 LOINC %LYMPH 22.1 % L=20.0 H=45.0 736-9 LOINC %MONO 10.3 % L=2.0 H=10.0 79497-6 LOINC H %EOS 3.0 % L=0.0 H=6.0 713-8 LOINC %BASO 0.5 % L=0.0 H=3.0 706-2 LOINC #NEUT 2.6 10^3uL L=1.9 H=7.6 55086-9 LOINC #LYMPH 0.9 10^3uL L=0.9 H=4.9 21581-6 LOINC #MONO 0.4 10^3uL L=0.1 H=0.9 30842-7 LOINC #EOS 0.1 10^3uL L=0.0 H=0.6 712-0 LOINC #BASO 0.02 10^3uL L=0.00 H=0.10 42213-1 LOINC #IM GRANS 0.0 10^3uL L=0.0 H=7.0 53486-7 LOINC %IM GRANS 0.3 % L=0.0 H=5.0 22022-7 LOINC %NRB 0.0 L=0.0 H=0.2 74208-5 LOINC #NRB 0.000 L=0.000 H=0.012 27502-9 LOINC MANUAL DIFF NOT INDICATED RBC MORPH NOT INDICATED PSA-SCREENING - Collect Date /Time: 09/13/2023 07:35 [facility] ID: [id number] [address] [place], [place], [id number] LOINC: 2857-1 Test Value Unit Reference Range Code Code System Flag PSA SCREEN 1.2 ng/mL L=0.0 H=4.0 2857-1 LOINC Social History Type Status Start Date End Date Code Code Syst em Smoking History Never smoker (Never Smoked) [id number] SNOMED CT Sex Male Medications Medication Start Date End Date Route Frequency Dose Code Code System Medication Instructions Home Meds Calcitriol 0.25MCG Oral Capsule, Liquid Filled 10/02/2021 Unknown ORAL THREE TIMES EVERY WEEK 0.25 MCG 496698 RxNorm TAKE 0.25 MCG ORAL THREE TIMES EVERY WEEK Fish Oil 1200 MG Oral Capsule, Liquid Filled 10/02/2021 Unknown ORAL TWICE A DAY 1200 MG 962094 RxNorm TAKE 1200 MG ORAL TWICE A DAY Metoprolol Succinate 25MG Oral Tablet, Extended Release 10/02/2021 Unknown ORAL TWICE A DAY 25 MILLIGRAMS 850913 RxNorm TAKE 25 MILLIGRAMS ORAL TWICE A DAY Mycophenolate Mofetil 250MG Oral Capsule 10/02/2021 Unknown ORAL TWICE A DAY 250 MILLIGRAMS 19900110 RxNorm TAKE 250 MILLIGRAMS ORAL TWICE A DAY Mycophenolate Mofetil 500MG Oral Tablet 10/02/2021 Unknown ORAL TWICE A DAY 500 MILLIGRAMS 298068 RxNorm TAKE 500 MILLIGRAMS ORAL TWICE A DAY Pantoprazole Sodium 20 MG Oral Tablet, Delayed Release 10/02/2021 Unknown ORAL ONCE A DAY 20 MG 896556 RxNorm TAKE 20 MG ORAL ONCE A DAY Sensipar 30MG Oral Tablet 10/02/2021 Unknown ORAL ONCE A DAY 30 MILLIGRAMS 728357 RxNorm TAKE 30 MILLIGRAMS ORAL ONCE A DAY Sertraline 50MG Oral Tablet 10/02/2021 Unknown ORAL TWICE A DAY 50 MILLIGRAMS 749277 RxNorm TAKE 50 MILLIGRAMS ORAL TWICE A DAY Tacrolimus 0.5MG Oral Capsule 10/02/2021 Unknown ORAL ONCE A DAY 0.5 MILLIGRAMS 691405 RxNorm TAKE 0.5 MILLIGRAMS ORAL ONCE A DAY Tacrolimus 1MG Oral Capsule 10/02/2021 Unknown ORAL ONCE A DAY 1 MILLIGRAMS 19830311 RxNorm TAKE 1 MILLIGRAMS ORAL ONCE A DAY Tylenol 325MG Oral Tablet 10/02/2021 Unknown ORAL NEEDED EVERY 4 HOURS 2 TABLET 611920 RxNorm TAKE 2 TABLET ORAL NEEDED EVERY [...] Unknown ORAL ONCE A DAY 5 MILLIGRAMS 872392 RxNorm TAKE 5 MILLIGRAMS ORAL ONCE A DAY risperiDONE 2MG Oral Tablet 10/02/2021 Unknown ORAL TWICE A DAY 5 MILLIGRAMS 619321 RxNorm TAKE 5 MILLIGRAMS ORAL TWICE A [...] System CIPROFLOXACIN Active 2551 RxNorm PARICALCITOL Active 89805 RxNorm ZEMPLAR Active 217501 RxNorm Plan of Treatment Bone Density Dexa 11/26/2022 Bone Density Dexa 12/14/2024 Encounters Encounter Diagnosis Start Date Code Code Sys tem Kidney transplant status 09/13/2023 [facility] MED-CT Personal Care Team Section Performer Name Performer Role Active Date Inactive Da alexander
--- OUTSIDE RECORDS SUMMARY | 2025-01-31 08:56 | XMS_ITS ---
Author Organization Unknown Address [address] [place] [phone] Phone Care Team Providers Care Lens Gauger Name Role Phone CONSTANTIN SNEED Attending Unavailable [...] mL dose 11/18/2022 Completed 300 CVX Results FK-506 - Collect Date/Time: 01/10/2024 06:15 [facility] ID: [id number] [place] [address], [id number] LOINC: 03020-3 Test Value Unit Reference Range Code Code System Flag Tacrolimus (FK506), Blood 9.2 2.0-20.0 00107-3 LOINC BK BY PCR - QUANT(PLASMA) (R EF) - Collect Date/Time: 01/10/2024 06:15 [facility] ID: [id number] [place] [address], [phone] LOINC: 36453-3 Test Value Unit Reference Range Code Code System Flag BKV DNA, Quant PCR,Plasma Negative Negative 01692-3 LOINC log10 BKV DNA,Plasma TNP 30423-0 LOINC RENAL FUNCTION PANEL - Colle ct Date/Time: 01/10/2024 06:15 [facility] ID: [id number] [place] [address], [id number] LOINC: 47110-7 Test Value Unit Reference Range Code Code System Flag FASTING? YES BUN 18 mg/dL L=7 H=20 3094-0 LOINC CREATININE 0.80 mg/dL L=0.66 H=1.25 2160-0 LOINC GLUCOSE 67 mg/dL L=74 H=106 2345-7 LOINC L CALCIUM 9.0 mg/dL L=8.3 H=10.5 31925-1 LOINC SODIUM 141 mmol/L L=132 H=144 2951-2 LOINC POTASSIUM 4.4 mmol/L L=3.5 H=5.1 2823-3 LOINC CHLORIDE 106 mmol/L L=98 H=107 2075-0 LOINC CO2 24.0 mmol/L L=22.0 H=30.0 2028-9 LOINC ANION GAP 15 L=10 H=20 72236-1 LOINC BUN/CREAT 22.5 3097-3 LOINC PHOSPHORUS 3.4 mg/dL L=2.5 H=4.9 2777-1 LOINC ALBUMIN 4.0 G/dL L=3.5 H=5.0 1751-7 LOINC AGE 48 07807-4 LOINC eGFR NON-AFR 109 ml/min eGFR AFR AMER 132 ml/min CBC W/ DIFF - Collect Date/T slime: 01/10/2024 06:15 [facility] ID: [id number] [address] [place], [place], [id number] LOINC: 53263-0 Test Value Unit Reference Range Code Code System Flag WBC 5.1 10^3uL L=4.8 H=10.8 RBC 4.23 10^6uL L=4.60 H=6.20 L HEMOGLOBIN 12.6 g/dL L=14.0 H=18.0 718-7 LOINC L HEMATOCRIT 38.9 VOL% L=42.0 H=52.0 4544-3 LOINC L MCV 92.0 fL L=80.0 H=94.0 MCH 29.8 pg L=27.0 H=32.0 MCHC 32.4 g/dL L=32.0 H=36.0 PLATELETS 181 10^3uL L=100 H=400 73954-6 LOINC RDW 13.4 % L=11.7 H=15.5 %GRAN 68.8 % L=40.0 H=70.0 32239-7 LOINC %LYMPH 17.9 % L=20.0 H=45.0 736-9 LOINC L %MONO 11.3 % L=2.0 H=10.0 51277-1 LOINC H %EOS 1.2 % L=0.0 H=6.0 713-8 LOINC %BASO 0.2 % L=0.0 H=3.0 706-2 LOINC #NEUT 3.5 10^3uL L=1.9 H=7.6 46420-1 LOINC #LYMPH 0.9 10^3uL L=0.9 H=4.9 26552-5 LOINC #MONO 0.6 10^3uL L=0.1 H=0.9 58238-3 LOINC #EOS 0.1 10^3uL L=0.0 H=0.6 712-0 LOINC #BASO 0.01 10^3uL L=0.00 H=0.10 84895-9 LOINC #IM GRANS 0.0 10^3uL L=0.0 H=7.0 81441-5 LOINC %IM GRANS 0.6 % L=0.0 H=5.0 71109-4 LOINC %NRB 0.0 L=0.0 H=0.2 88446-9 LOINC #NRB 0.000 L=0.000 H=0.012 67492-3 LOINC MANUAL DIFF NOT INDICATED RBC MORPH NOT INDICATED BK VIRUS - URINE QUANT BY PC R(REF) - Collect Date/Time: 01/10/2024 05:30 [facility] ID: [id number] [place] [address], [id number] LOINC: 29925-2 Test Value Unit Reference Range Code Code System Flag BKV DNA, Quant PCR, Urine 840 Negative 55417-0 LOINC log10 BKV DNA, Urine 2.924 68381-4 LOINC MICROALBUMIN - Collect Date/ Time: 01/10/2024 05:30 [facility] ID: [id number] [place] [address], [id number] LOINC: 92133-4 Test Value Unit Reference Range Code Code System Flag MICROALBUMIN 39.2 mg/L L=0.0 H=16.7 02294-5 LOINC H UR CREATININE 63.90 mg/dL L=30.00 H=125 2161-8 LOINC MA/CR 61.3 mg/gCR Social History Type Status Start Date End Date Code Code Syst em Smoking History Never smoker (Never Smoked) [id number] SNOMED CT Sex Male Medications Medication Start Date End Date Route Frequency Dose Code Code System Medication Instructions Home Meds Calcitriol 0.25MCG Oral Capsule, Liquid Filled 10/02/2021 Unknown ORAL THREE TIMES EVERY WEEK 0.25 MCG 750250 RxNorm TAKE 0.25 MCG ORAL THREE TIMES EVERY WEEK Fish Oil 1200 MG Oral Capsule, Liquid Filled 10/02/2021 Unknown ORAL TWICE A DAY 1200 MG 876747 RxNorm TAKE 1200 MG ORAL TWICE A DAY Metoprolol Succinate 25MG Oral Tablet, Extended Release 10/02/2021 Unknown ORAL TWICE A DAY 25 MILLIGRAMS 810874 RxNorm TAKE 25 MILLIGRAMS ORAL TWICE A DAY Mycophenolate Mofetil 250MG Oral Capsule 10/02/2021 Unknown ORAL TWICE A DAY 250 MILLIGRAMS 19900110 RxNorm TAKE 250 MILLIGRAMS ORAL TWICE A DAY Mycophenolate Mofetil 500MG Oral Tablet 10/02/2021 Unknown ORAL TWICE A DAY 500 MILLIGRAMS 824671 RxNorm TAKE 500 MILLIGRAMS ORAL TWICE A DAY Pantoprazole Sodium 20 MG Oral Tablet, Delayed Release 10/02/2021 Unknown ORAL ONCE A DAY 20 MG 558027 RxNorm TAKE 20 MG ORAL ONCE A DAY Sensipar 30MG Oral Tablet 10/02/2021 Unknown ORAL ONCE A DAY 30 MILLIGRAMS 557853 RxNorm TAKE 30 MILLIGRAMS ORAL ONCE A DAY Sertraline 50MG Oral Tablet 10/02/2021 Unknown ORAL TWICE A DAY 50 MILLIGRAMS 754641 RxNorm TAKE 50 MILLIGRAMS ORAL TWICE A DAY Tacrolimus 0.5MG Oral Capsule 10/02/2021 Unknown ORAL ONCE A DAY 0.5 MILLIGRAMS 790905 RxNorm TAKE 0.5 MILLIGRAMS ORAL ONCE A DAY Tacrolimus 1MG Oral Capsule 10/02/2021 Unknown ORAL ONCE A DAY 1 MILLIGRAMS 19830311 RxNorm TAKE 1 MILLIGRAMS ORAL ONCE A DAY Tylenol 325MG Oral Tablet 10/02/2021 Unknown ORAL NEEDED EVERY 4 HOURS 2 TABLET 429444 RxNorm TAKE 2 TABLET ORAL NEEDED EVERY [...] 10/02/2021 Unknown ORAL AT BEDTIME 100 MILLIGRAMS 163580 RxNorm TAKE 100 MILLIGRAMS ORAL AT BEDTIME predniSONE 5MG Oral Tablet 10/02/2021 Unknown ORAL ONCE A DAY 5 MILLIGRAMS 762299 RxNorm TAKE 5 MILLIGRAMS ORAL ONCE A DAY risperiDONE 2MG Oral Tablet 10/02/2021 Unknown ORAL TWICE A DAY 5 MILLIGRAMS 427734 RxNorm TAKE 5 MILLIGRAMS ORAL TWICE A [...] System CIPROFLOXACIN Active 2551 RxNorm PARICALCITOL Active 29211 RxNorm ZEMPLAR Active 979511 RxNorm Plan of Treatment Bone Density Dexa 11/26/2022 Bone Density Dexa 12/14/2024 Encounters Encounter Diagnosis Start Date Code Code Sys tem Kidney transplant status 01/10/2024 [facility] Personal Care Team Section Performer Name Performer Role Active Date Inactive Da alexander
--- OUTSIDE RECORDS SUMMARY | 2025-01-31 08:56 | XMS_ITS | Continuity of Care Document ---
Author Organization [facility] Address [address] [place] [address] Phone Care Team Providers Care Security Professionals Name Role Phone Surgery [facility], [facility] Unavailable Unavailable Procedures Procedure Date CATARACT SURG W/IOL Pt Documented Not To Have Experienced An y Of The Pt W/Out Preop Order For IV Antibiotic S SI CATARACT SURG W/IOL Pt Documented Not To Have Experienced An y Of The Pt W/Out Preop Order For IV Antibiotic S SI Advance Directives Directive Yes / No Effective Date File Name No Information Encounters Encounter Description Practice Location Reason(s) For Visit Diagnoses Date Provider Providers Copied on Encounter [facility], [address] [place], [place], [id number], [place] tel:[phone] [facility] No Information Surgery - [facility]. [address] [place], [place], [id number], [place]. tel:[phone] Referring Provider: Ayaz Gan, [address] [place], [address]. tel:[phone] [facility] [place], [facility], [address] [place], [place], [id number], [place] tel:[phone] [facility] No Information Surgery - [facility]. [address] [place], [place], [id number], . tel:[phone] Referring Provider: Ayaz Gan, [address] [place], [address]. tel:[phone] Family History Family Member Type Diagnosis Age At Onset No Information Payers Payer name Insurance type Covered constitution party ID Authoriza tion(s) [place] [id number] [place] Public [facility] [id number] Social History Type Description Quantity Date Captured Comments Sex Male Smoking Status No Information Chief Complaint And Reason For Visit No Information Reason For Referral Reason For Referral No Information History Of Present Illness Encounter Date Complaint History Of Prese nt Illness No Information Functional Status Date Functional Assessmen t No Information Instructions Date Instruction Additional Infor mation No Information Assessments Type Assessment Date No Information Patient Care Teams Name Effective Dates (start - stop) Status Members No Information
--- OUTSIDE RECORDS SUMMARY | 2025-01-31 08:57 | XMS_ITS ---
Author Organization Unknown Address [address] [place] [phone] Phone Care Team Providers Care Research And Development Engineer Name Role Phone CONSTANTIN SNEED Attending [...] 300 CVX Results FK-506 - Collect Date/Time: 06/13/2024 06:23 [facility] ID: [id number] [id number] [place], [place], [id number] LOINC: 12016-2 Test Value Unit Reference Range Code Code System Flag Tacrolimus (FK506), Blood 7.3 2.0-20.0 13344-5 LOINC BK BY PCR - QUANT(PLASMA) (R EF) - Collect Date/Time: 06/13/2024 06:23 [facility] ID: [id number] [id number] [place], [place], [id number] LOINC: 44370-1 Test Value Unit Reference Range Code Code System Flag BKV DNA, Quant PCR,Plasma Negative Negative 17386-2 LOINC log10 BKV DNA,Plasma TNP 02284-8 LOINC CBC W/ DIFF - Collect Date/T slime: 06/13/2024 06:23 [facility] ID: [id number] [address] [place], [place], [id number] LOINC: 83456-1 Test Value Unit Reference Range Code Code System Flag WBC 5.5 10^3uL L=4.8 H=10.8 RBC 4.31 10^6uL L=4.60 H=6.20 L HEMOGLOBIN 12.8 g/dL L=14.0 H=18.0 718-7 LOINC L HEMATOCRIT 38.7 VOL% L=42.0 H=52.0 4544-3 LOINC L MCV 89.8 fL L=80.0 H=94.0 MCH 29.7 pg L=27.0 H=32.0 MCHC 33.1 g/dL L=32.0 H=36.0 PLATELETS 185 10^3uL L=100 H=400 21083-4 LOINC RDW 13.3 % L=11.7 H=15.5 %GRAN 58.2 % L=40.0 H=70.0 09234-1 LOINC %LYMPH 25.3 % L=20.0 H=45.0 736-9 LOINC %MONO 12.5 % L=2.0 H=10.0 62432-1 LOINC H %EOS 2.9 % L=0.0 H=6.0 713-8 LOINC %BASO 0.2 % L=0.0 H=3.0 706-2 LOINC #NEUT 3.2 10^3uL L=1.9 H=7.6 39932-9 LOINC #LYMPH 1.4 10^3uL L=0.9 H=4.9 46918-0 LOINC #MONO 0.7 10^3uL L=0.1 H=0.9 29516-8 LOINC #EOS 0.2 10^3uL L=0.0 H=0.6 712-0 LOINC #BASO 0.01 10^3uL L=0.00 H=0.10 07301-5 LOINC #IM GRANS 0.1 10^3uL L=0.0 H=7.0 84029-0 LOINC %IM GRANS 0.9 % L=0.0 H=5.0 53004-7 LOINC %NRB 0.0 L=0.0 H=0.2 01342-6 LOINC #NRB 0.000 L=0.000 H=0.012 98857-4 LOINC MANUAL DIFF NOT INDICATED RBC MORPH NOT INDICATED RENAL FUNCTION PANEL - Colle ct Date/Time: 06/13/2024 06:23 [facility] ID: [id number] [address] [place], [place], [id number] LOINC: 69351-6 Test Value Unit Reference Range Code Code System Flag FASTING? UNKNOWN BUN 18 mg/dL L=7 H=20 3094-0 LOINC CREATININE 0.80 mg/dL L=0.66 H=1.25 2160-0 LOINC GLUCOSE 82 mg/dL L=74 H=106 2345-7 LOINC CALCIUM 9.1 mg/dL L=8.3 H=10.5 76893-4 LOINC SODIUM 138 mmol/L L=132 H=144 2951-2 LOINC POTASSIUM 4.3 mmol/L L=3.5 H=5.1 2823-3 LOINC CHLORIDE 105 mmol/L L=98 H=107 2075-0 LOINC CO2 23.0 mmol/L L=22.0 H=30.0 2028-9 LOINC ANION GAP 14 L=10 H=20 51527-6 LOINC BUN/CREAT 22.5 3097-3 LOINC PHOSPHORUS 3.5 mg/dL L=2.5 H=4.9 2777-1 LOINC ALBUMIN 4.0 G/dL L=3.5 H=5.0 1751-7 LOINC AGE 49 84505-3 LOINC eGFR NON-AFR 109 ml/min eGFR AFR AMER 132 ml/min Social History Type Status Start Date End Date Code Code Syst em Smoking History Never smoker (Never Smoked) 699279891 SNOMED CT Sex Male Medications Medication Start Date End Date Route Frequency Dose Code Code System Medication Instructions Home Meds Calcitriol 0.25MCG Oral Capsule, Liquid Filled 10/02/2021 Unknown ORAL THREE TIMES EVERY WEEK 0.25 MCG 527990 RxNorm TAKE 0.25 MCG ORAL THREE TIMES EVERY WEEK Fish Oil 1200 MG Oral Capsule, Liquid Filled 10/02/2021 Unknown ORAL TWICE A DAY 1200 MG 495394 RxNorm TAKE 1200 MG ORAL TWICE A DAY Metoprolol Succinate 25MG Oral Tablet, Extended Release 10/02/2021 Unknown ORAL TWICE A DAY 25 MILLIGRAMS 080864 RxNorm TAKE 25 MILLIGRAMS ORAL TWICE A DAY Mycophenolate Mofetil 250MG Oral Capsule 10/02/2021 Unknown ORAL TWICE A DAY 250 MILLIGRAMS 19900110 RxNorm TAKE 250 MILLIGRAMS ORAL TWICE A DAY Mycophenolate Mofetil 500MG Oral Tablet 10/02/2021 Unknown ORAL TWICE A DAY 500 MILLIGRAMS 675756 RxNorm TAKE 500 MILLIGRAMS ORAL TWICE A DAY Pantoprazole Sodium 20 MG Oral Tablet, Delayed Release 10/02/2021 Unknown ORAL ONCE A DAY 20 MG 331512 RxNorm TAKE 20 MG ORAL ONCE A DAY Sensipar 30MG Oral Tablet 10/02/2021 Unknown ORAL ONCE A DAY 30 MILLIGRAMS 776845 RxNorm TAKE 30 MILLIGRAMS ORAL ONCE A DAY Sertraline 50MG Oral Tablet 10/02/2021 Unknown ORAL TWICE A DAY 50 MILLIGRAMS 186225 RxNorm TAKE 50 MILLIGRAMS ORAL TWICE A DAY Tacrolimus 0.5MG Oral Capsule 10/02/2021 Unknown ORAL ONCE A DAY 0.5 MILLIGRAMS 816818 RxNorm TAKE 0.5 MILLIGRAMS ORAL ONCE A DAY Tacrolimus 1MG Oral Capsule 10/02/2021 Unknown ORAL ONCE A DAY 1 MILLIGRAMS 19830311 RxNorm TAKE 1 MILLIGRAMS ORAL ONCE A DAY Tylenol 325MG Oral Tablet 10/02/2021 Unknown ORAL NEEDED EVERY 4 HOURS 2 TABLET 20930411 RxNorm TAKE 2 TABLET ORAL NEEDED EVERY [...] Unknown ORAL ONCE A DAY 5 MILLIGRAMS 935223 RxNorm TAKE 5 MILLIGRAMS ORAL ONCE A DAY risperiDONE 2MG Oral Tablet 10/02/2021 Unknown ORAL TWICE A DAY 5 MILLIGRAMS 016135 RxNorm TAKE 5 MILLIGRAMS ORAL TWICE A [...] System CIPROFLOXACIN Active 2551 RxNorm PARICALCITOL Active 92236 RxNorm ZEMPLAR Active 538744 RxNorm Plan of Treatment Bone Density Dexa 11/26/2022 Bone Density Dexa 12/14/2024 Encounters Encounter Diagnosis Start Date Code Code Sys tem Other long term care administrator (current) drug therapy 06/13/2024 SNOMED-CT Personal Care Team Section Performer Name Performer Role Active Date Inactive Da te
--- OUTSIDE RECORDS SUMMARY | 2025-01-31 08:57 | XMS_ITS ---
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 Name Role Phone CONSTANTIN SNEED Attending Unavailable [...] 300 CVX Results FK-506 - Collect Date/Time: 12/13/2023 07:15 [facility] ID: [id number] [address] [place], [place], [id number] LOINC: 91896-9 Test Value Unit Reference Range Code Code System Flag Tacrolimus (FK506), Blood 9.7 2.0-20.0 02383-0 LOINC RENAL FUNCTION PANEL - Colle ct Date/Time: 12/13/2023 07:15 [facility] ID: [id number] [address] [place] [address], [id number] LOINC: 10930-3 Test Value Unit Reference Range Code Code System Flag FASTING? NO BUN 19 mg/dL L=7 H=20 3094-0 LOINC CREATININE 0.80 mg/dL L=0.66 H=1.25 2160-0 LOINC GLUCOSE 104 mg/dL L=74 H=106 2345-7 LOINC CALCIUM 9.3 mg/dL L=8.3 H=10.5 26816-9 LOINC SODIUM 139 mmol/L L=132 H=144 2951-2 LOINC POTASSIUM 4.0 mmol/L L=3.5 H=5.1 2823-3 LOINC CHLORIDE 106 mmol/L L=98 H=107 2075-0 LOINC CO2 23.0 mmol/L L=22.0 H=30.0 2028-9 LOINC ANION GAP 14 L=10 H=20 12882-0 LOINC BUN/CREAT 23.8 3097-3 LOINC PHOSPHORUS 3.4 mg/dL L=2.5 H=4.9 2777-1 LOINC ALBUMIN 4.0 G/dL L=3.5 H=5.0 1751-7 LOINC AGE 48 92042-1 LOINC eGFR NON-AFR 109 ml/min eGFR AFR AMER 132 ml/min BK BY PCR - QUANT(PLASMA) (R EF) - Collect Date/Time: 12/13/2023 07:15 [facility] ID: [id number] [address] [place] [address], [id number] LOINC: 99810-4 Test Value Unit Reference Range Code Code System Flag BKV DNA, Quant PCR,Plasma Negative Negative 81149-9 LOINC log10 BKV DNA,Plasma TNP 71684-4 LOINC BK VIRUS - URINE QUANT BY PC R(REF) - Collect Date/Time: 12/13/2023 07:15 [facility] ID: [id number] [address] [place] [address], [id number] LOINC: 36787-1 Test Value Unit Reference Range Code Code System Flag BKV DNA, Quant PCR, Urine 381 Negative 33779-9 LOINC log10 BKV DNA, Urine 2.581 24410-0 LOINC HEPATITIS C AB (HCV Ab) - Co llect Date/Time: 12/13/2023 07:15 [facility] ID: [id number] [address] [place] [address], [id number] LOINC: 56125-4 Test Value Unit Reference Range Code Code System Flag Hep C Virus Ab Non Reactive Non Reactive 79810-3 LOINC SEND TO IFC? NO HIV 4th GEN Ab 1&2 p24 Ag in -house - Collect Date/Time: 12/13/2023 07:15 [facility] ID: [id number] [address] [place] [address], [id number] LOINC: 42660-5 Test Value Unit Reference Range Code Code System Flag HIV-1 Ab NEGATIVE NORMAL: NON REACTIVE/NE HIV-2 Ab NEGATIVE HIV-p24 Ag NEGATIVE SEND TO IFC? NO REFLEX? NO 5778-6 LOINC CBC W/ DIFF - Collect Date/T slime: 12/13/2023 07:15 [facility] ID: [id number] [address] [place], [place], [id number] LOINC: 40403-8 Test Value Unit Reference Range Code Code System Flag WBC 5.1 10^3uL L=4.8 H=10.8 RBC 4.26 10^6uL L=4.60 H=6.20 L HEMOGLOBIN 12.8 g/dL L=14.0 H=18.0 718-7 LOINC L HEMATOCRIT 38.9 VOL% L=42.0 H=52.0 4544-3 LOINC L MCV 91.3 fL L=80.0 H=94.0 MCH 30.0 pg L=27.0 H=32.0 MCHC 32.9 g/dL L=32.0 H=36.0 PLATELETS 194 10^3uL L=100 H=400 73130-8 LOINC RDW 13.4 % L=11.7 H=15.5 %GRAN 63.4 % L=40.0 H=70.0 10031-8 LOINC %LYMPH 23.3 % L=20.0 H=45.0 736-9 LOINC %MONO 10.3 % L=2.0 H=10.0 34127-1 LOINC H %EOS 2.2 % L=0.0 H=6.0 713-8 LOINC %BASO 0.2 % L=0.0 H=3.0 706-2 LOINC #NEUT 3.2 10^3uL L=1.9 H=7.6 68670-5 LOINC #LYMPH 1.2 10^3uL L=0.9 H=4.9 46843-1 LOINC #MONO 0.5 10^3uL L=0.1 H=0.9 90512-5 LOINC #EOS 0.1 10^3uL L=0.0 H=0.6 712-0 LOINC #BASO 0.01 10^3uL L=0.00 H=0.10 17326-0 LOINC #IM GRANS 0.0 10^3uL L=0.0 H=7.0 92397-4 LOINC %IM GRANS 0.6 % L=0.0 H=5.0 52766-2 LOINC %NRB 0.0 L=0.0 H=0.2 57075-9 LOINC #NRB 0.000 L=0.000 H=0.012 11472-3 LOINC MANUAL DIFF NOT INDICATED RBC MORPH NOT INDICATED URINALYSIS w/Microscopy/C&S if indicated - Collect Date/Time: 12/13/2023 07:00 [facility] ID: [id number] [address] [place], [place], [id number] LOINC: 02034-2 Test Value Unit Reference Range Code Code System Flag UR SOURCE VOIDED 03050-7 LOINC COLOR YELLOW YELLOW 5778-6 LOINC CLARITY CLEAR CLEAR 06449-5 LOINC SPEC GRAVITY 1.015 1.000-1.030 5811-5 LOINC PH 6.0 5.0 - 6.5 5803-2 LOINC LEUK EST NEGATIVE NEGATIVE 5799-2 LOINC NITRATE NEGATIVE NEGATIVE PROTEIN NEGATIVE NEGATIVE 5804-0 LOINC GLUCOSE NEGATIVE NEGATIVE 41636-0 LOINC KETONES NEGATIVE NEGATIVE 76483-0 LOINC UROBILINOGEN 0.2 NEGATIVE 5818-0 LOINC BILIRUBIN NEGATIVE NEGATIVE 27778-1 LOINC BLOOD 2+ NEGATIVE 85382-8 LOINC WBC 0-2 0 - 2 42945-5 LOINC RBC 5-10 0 - 2 75239-7 LOINC A EPITHELIAL RARE RARE-FEW 40148-9 LOINC BACTERIA FEW NONE SEEN 90845-6 LOINC MUCUS NONE SEEN NONE SEEN 8247-9 LOINC YEAST NOT PRESENT NOT PRESENT 97259-4 LOINC CASTS NONE SEEN 09212-6 LOINC CRYSTALS NONE SEEN 54770-9 LOINC CULTURE? NO 8251-1 LOINC DIAGNOSIS N/A Social History Type Status Start Date End Date Code Code Syst em Smoking History Never smoker (Never Smoked) [id number] SNOMED CT Sex Male Medications Medication Start Date End Date Route Frequency Dose Code Code System Medication Instructions Home Meds Calcitriol 0.25MCG Oral Capsule, Liquid Filled 10/02/2021 Unknown ORAL THREE TIMES EVERY WEEK 0.25 MCG 243907 RxNorm TAKE 0.25 MCG ORAL THREE TIMES EVERY WEEK Fish Oil 1200 MG Oral Capsule, Liquid Filled 10/02/2021 Unknown ORAL TWICE A DAY 1200 MG 757103 RxNorm TAKE 1200 MG ORAL TWICE A DAY Metoprolol Succinate 25MG Oral Tablet, Extended Release 10/02/2021 Unknown ORAL TWICE A DAY 25 MILLIGRAMS 101140 RxNorm TAKE 25 MILLIGRAMS ORAL TWICE A DAY Mycophenolate Mofetil 250MG Oral Capsule 10/02/2021 Unknown ORAL TWICE A DAY 250 MILLIGRAMS 19900110 RxNorm TAKE 250 MILLIGRAMS ORAL TWICE A DAY Mycophenolate Mofetil 500MG Oral Tablet 10/02/2021 Unknown ORAL TWICE A DAY 500 MILLIGRAMS 509119 RxNorm TAKE 500 MILLIGRAMS ORAL TWICE A DAY Pantoprazole Sodium 20 MG Oral Tablet, Delayed Release 10/02/2021 Unknown ORAL ONCE A DAY 20 MG 419591 RxNorm TAKE 20 MG ORAL ONCE A DAY Sensipar 30MG Oral Tablet 10/02/2021 Unknown ORAL ONCE A DAY 30 MILLIGRAMS 510682 RxNorm TAKE 30 MILLIGRAMS ORAL ONCE A DAY Sertraline 50MG Oral Tablet 10/02/2021 Unknown ORAL TWICE A DAY 50 MILLIGRAMS 308147 RxNorm TAKE 50 MILLIGRAMS ORAL TWICE A DAY Tacrolimus 0.5MG Oral Capsule 10/02/2021 Unknown ORAL ONCE A DAY 0.5 MILLIGRAMS 237018 RxNorm TAKE 0.5 MILLIGRAMS ORAL ONCE A DAY Tacrolimus 1MG Oral Capsule 10/02/2021 Unknown ORAL ONCE A DAY 1 MILLIGRAMS 237316 RxNorm TAKE 1 MILLIGRAMS ORAL ONCE A DAY Tylenol 325MG Oral Tablet 10/02/2021 Unknown ORAL NEEDED EVERY 4 HOURS 2 TABLET 341379 RxNorm TAKE 2 TABLET ORAL NEEDED EVERY [...] Unknown ORAL ONCE A DAY 5 MILLIGRAMS 760508 RxNorm TAKE 5 MILLIGRAMS ORAL ONCE A DAY risperiDONE 2MG Oral Tablet 10/02/2021 Unknown ORAL TWICE A DAY 5 MILLIGRAMS 217232 RxNorm TAKE 5 MILLIGRAMS ORAL TWICE A [...] System CIPROFLOXACIN Active 2551 RxNorm PARICALCITOL Active 03935 RxNorm ZEMPLAR Active 116809 RxNorm Plan of Treatment Bone Density Dexa 11/26/2022 Bone Density Dexa 12/14/2024 Encounters Encounter Diagnosis Start Date Code Code Sys tem Chronic kidney disease, stage 2 (mild) 12/13/2023 SNOMED-CT Personal Care Team Section Performer Name Performer Role Active Date Inactive Da alexander
--- OUTSIDE RECORDS SUMMARY | 2025-01-31 08:57 | XMS_ITS ---
Author Organization Unknown Address [address] [place] [phone] Phone Care Team Providers Care Stable Helper Name Role Phone KATHERIN Sanchez Attending Unavailable Immunization Immunization Date Status Additional Notes [...] mL dose 11/18/2022 Completed 300 CVX Results BONE DENSITY STUDY DEXA HIP OR SPINE - Completed: 12/14/2024 12:50 LOINC: \TM00\\12PI\\DRAo\\BM09\ \MRHo\ [address] [address] ---------NAME--------- NUMBER SEX AGE ADMIT DISC. XRAY# F/C TYPE TEENA BIGGS [id number] M 49 12/14/24 12/14/24 [id number] MB O/P DATE OF : 1975 M/R# [id number] PH#: [phone] RM \MRHx\ LOCATION: TRANSCRIBED: 12/14/24 13:21 BONE DENSITY STUDY DEXA HIP [id number] COMPLETED:12/14/24 12:50 TLS [id number] {REASON-BONE DENSITY: OSTEOPOROSIS PHYSICIAN: KATHERIN BR R A D I O L O G Y R E P O R T INDICATION: OSTEOPOROSIS ; postmenopausal. DEXA SCAN: BONE DENSITY REPORT: AP SPINE (L1-L4) : T Score: 0.9 LEFT FEMORAL NECK : T Score: -1.9 LEFT HIP TOTAL : T Score: -2.0 10 YEAR FRACTURE RISK* Major osteoporotic fracture 4.3 % Hip fracture 0.6 % IMPRESSION: 1. Osteopenia of the left hip. 2. Normal bone mineral density of the lumbar spine. *FRAX version 3.08. Fracture probability calculated for an untreated patient. Fracture probability may be lower if the patient has received treatment. T-score: comparison by standard deviation (SD) to a young adult population, matched for sex and ethnicity (used for postmenopausal women and men >50 years) and classified by WHO criteria. -1.0: normal <-1.0 to >-2.5: osteopenia -2.5: osteoporosis -2.5 plus fragility fracture: severe osteoporosis Z-score: compared by SD to an age, sex, and ethnicity population (used for premenopausal women, men <50 years, and children instead of T-score WHO criteria 4) <-2.0: below expected range/low bone density for age, and a cause should be sought WORKER \ITLo\ \UNDo\ \UNDx\ \ITLx\ Reviewed and Electronically Signed by: Casandra Milligan MD Signed Date: 12/14/24 13:21 Social History Type Status Start Date End Date Code Code Syst em Smoking History Never smoker (Never Smoked) [id number] SNOMED CT Sex Male Medications Medication Start Date End Date Route Frequency Dose Code Code System Medication Instructions Home Meds Calcitriol 0.25MCG Oral Capsule, Liquid Filled 10/02/2021 Unknown ORAL THREE TIMES EVERY WEEK 0.25 MCG 622120 RxNorm TAKE 0.25 MCG ORAL THREE TIMES EVERY WEEK Fish Oil 1200 MG Oral Capsule, Liquid Filled 10/02/2021 Unknown ORAL TWICE A DAY 1200 MG 873281 RxNorm TAKE 1200 MG ORAL TWICE A DAY Metoprolol Succinate 25MG Oral Tablet, Extended Release 10/02/2021 Unknown ORAL TWICE A DAY 25 MILLIGRAMS 761828 RxNorm TAKE 25 MILLIGRAMS ORAL TWICE A DAY Mycophenolate Mofetil 250MG Oral Capsule 10/02/2021 Unknown ORAL TWICE A DAY 250 MILLIGRAMS 19900110 RxNorm TAKE 250 MILLIGRAMS ORAL TWICE A DAY Mycophenolate Mofetil 500MG Oral Tablet 10/02/2021 Unknown ORAL TWICE A DAY 500 MILLIGRAMS 505145 RxNorm TAKE 500 MILLIGRAMS ORAL TWICE A DAY Pantoprazole Sodium 20 MG Oral Tablet, Delayed Release 10/02/2021 Unknown ORAL ONCE A DAY 20 MG 092707 RxNorm TAKE 20 MG ORAL ONCE A DAY Sensipar 30MG Oral Tablet 10/02/2021 Unknown ORAL ONCE A DAY 30 MILLIGRAMS 383594 RxNorm TAKE 30 MILLIGRAMS ORAL ONCE A DAY Sertraline 50MG Oral Tablet 10/02/2021 Unknown ORAL TWICE A DAY 50 MILLIGRAMS 330676 RxNorm TAKE 50 MILLIGRAMS ORAL TWICE A DAY Tacrolimus 0.5MG Oral Capsule 10/02/2021 Unknown ORAL ONCE A DAY 0.5 MILLIGRAMS 018764 RxNorm TAKE 0.5 MILLIGRAMS ORAL ONCE A DAY Tacrolimus 1MG Oral Capsule 10/02/2021 Unknown ORAL ONCE A DAY 1 MILLIGRAMS 19830311 RxNorm TAKE 1 MILLIGRAMS ORAL ONCE A DAY Tylenol 325MG Oral Tablet 10/02/2021 Unknown ORAL NEEDED EVERY 4 HOURS 2 TABLET 023389 RxNorm TAKE 2 TABLET ORAL NEEDED EVERY [...] Unknown ORAL ONCE A DAY 5 MILLIGRAMS 195853 RxNorm TAKE 5 MILLIGRAMS ORAL ONCE A DAY risperiDONE 2MG Oral Tablet 10/02/2021 Unknown ORAL TWICE A DAY 5 MILLIGRAMS 079364 RxNorm TAKE 5 MILLIGRAMS ORAL TWICE A [...] System CIPROFLOXACIN Active 2551 RxNorm PARICALCITOL Active 25255 RxNorm ZEMPLAR Active 713815 RxNorm Plan of Treatment Bone Density Dexa 11/26/2022 Bone Density Dexa 12/14/2024 Encounters Encounter Diagnosis Start Date Code Code Sys tem Other osteoporosis without current pathological fractu re 12/14/2024 SNOMED-CT Personal Care Team Section Performer Name Performer Role Active Date Inactive Da te Imaging Narrative Notes [facility] 12/14/2024 13:[address] [address] ---------NAME--------- NUMBER SEX AGE ADMIT DISC. XRAY# F/C TYPE TEENA BIGGS [id number] M 49 12/14/24 12/14/24 [id number] MB O/P DATE OF : 1975 M/R# [id number] #: [phone] LOCATION: TRANSCRIBED: 12/14/24 13:21 BONE DENSITY STUDY DEXA HIP [id number] COMPLETED:12/14/24 12:50 TLS [id number] {REASON-BONE DENSITY: OSTEOPOROSIS PHYSICIAN: KATHERIN BR RADIOLOGY REPORT INDICATION: OSTEOPOROSIS ; postmenopausal. DEXA SCAN: BONE DENSITY REPORT: AP SPINE (L1-L4) : T Score: 0.9 LEFT FEMORAL NECK : T Score: -1.9 LEFT HIP TOTAL : T Score: -2.0 10 YEAR FRACTURE RISK* Major osteoporotic fracture 4.3 % Hip fracture 0.6 % IMPRESSION: 1. Osteopenia of the left hip. 2. Normal bone mineral density of the lumbar spine. *FRAX version 3.08. Fracture probability calculated for an untreated patient. Fracture probability may be lower if the patient has received treatment. T-score: comparison by standard deviation (SD) to a young adult population, matched for sex and ethnicity (used for postmenopausal women and men >50 years) and classified by WHO criteria. -1.0: normal <-1.0 to >-2.5: osteopenia -2.5: osteoporosis -2.5 plus fragility fracture: severe osteoporosis Z-score: compared by SD to an age, sex, and ethnicity population (used for premenopausal women, men <50 years, and children instead of T-score WHO criteria 4) <-2.0: below expected range/low bone density for age, and a cause should be sought WORKER Reviewed and Electronically Signed by: Casandra Milligan MD Signed Date: 12/14/24 13:21
--- OUTSIDE RECORDS SUMMARY | 2025-01-31 08:57 | XMS_ITS ---
Author Organization Unknown Address [address] [place] [phone] Phone Care Team Providers Care Supervisor Electronic Testing Name Role Phone CONSTANTIN SNEED Attending Unavailable [...] mL dose 11/18/2022 Completed 300 CVX Results URINALYSIS w/Microscopy/C&S if indicated - Collect Date/Time: 06/12/2024 07:00 [facility] ID: [id number] [place], [place], [id number] LOINC: 02519-4 Test Value Unit Reference Range Code Code System Flag UR SOURCE VOIDED 38766-9 LOINC COLOR YELLOW YELLOW 5778-6 LOINC CLARITY SL CLOUDY CLEAR 08217-7 LOINC SPEC GRAVITY 1.020 1.000-1.030 5811-5 LOINC PH 6.0 5.0 - 6.5 5803-2 LOINC LEUK EST NEGATIVE NEGATIVE 5799-2 LOINC NITRATE NEGATIVE NEGATIVE PROTEIN NEGATIVE NEGATIVE 5804-0 LOINC GLUCOSE NEGATIVE NEGATIVE 71997-9 LOINC KETONES NEGATIVE NEGATIVE 51917-9 LOINC UROBILINOGEN 0.2 NEGATIVE 5818-0 LOINC BILIRUBIN NEGATIVE NEGATIVE 23936-1 LOINC BLOOD 2+ NEGATIVE 50588-7 LOINC WBC 5-10 0 - 2 84765-2 LOINC A RBC 10-20 0 - 2 66045-7 LOINC A EPITHELIAL OCCASIONA RARE-FEW 91904-8 LOINC BACTERIA FEW NONE SEEN 01599-5 LOINC MUCUS NONE SEEN NONE SEEN 8247-9 LOINC YEAST NOT PRESENT NOT PRESENT 85286-2 LOINC CASTS NONE SEEN 79916-8 LOINC CRYSTALS NONE SEEN 72314-4 LOINC CULTURE? NO 8251-1 LOINC DIAGNOSIS N/A MICROALBUMIN - Collect Date/ Time: 06/12/2024 07:00 [facility] ID: [id number] [place], [place], [id number] LOINC: 99267-6 Test Value Unit Reference Range Code Code System Flag MICROALBUMIN 16.6 mg/L L=0.0 H=16.7 49060-2 LOINC UR CREATININE 86.00 mg/dL L=30.00 H=125 2161-8 LOINC MA/CR 19.3 mg/gCR BK VIRUS - URINE QUANT BY SANTIAGO R(REF) - Collect Date/Time: 06/12/2024 07:00 [facility] ID: [id number] [place], [place], [id number] LOINC: 19973-6 Test Value Unit Reference Range Code Code System Flag BKV DNA, Quant PCR, Urine 1070 Negative 01951-3 LOINC log10 BKV DNA, Urine 3.029 86602-4 LOINC Social History Type Status Start Date End Date Code Code Syst em Smoking History Never smoker (Never Smoked) 423112500 SNOMED CT Sex Male Medications Medication Start Date End Date Route Frequency Dose Code Code System Medication Instructions Home Meds Calcitriol 0.25MCG Oral Capsule, Liquid Filled 10/02/2021 Unknown ORAL THREE TIMES EVERY WEEK 0.25 MCG 130910 RxNorm TAKE 0.25 MCG ORAL THREE TIMES EVERY WEEK Fish Oil 1200 MG Oral Capsule, Liquid Filled 10/02/2021 Unknown ORAL TWICE A DAY 1200 MG 108897 RxNorm TAKE 1200 MG ORAL TWICE A DAY Metoprolol Succinate 25MG Oral Tablet, Extended Release 10/02/2021 Unknown ORAL TWICE A DAY 25 MILLIGRAMS 816989 RxNorm TAKE 25 MILLIGRAMS ORAL TWICE A DAY Mycophenolate Mofetil 250MG Oral Capsule 10/02/2021 Unknown ORAL TWICE A DAY 250 MILLIGRAMS 686896 RxNorm TAKE 250 MILLIGRAMS ORAL TWICE A DAY Mycophenolate Mofetil 500MG Oral Tablet 10/02/2021 Unknown ORAL TWICE A DAY 500 MILLIGRAMS 580432 RxNorm TAKE 500 MILLIGRAMS ORAL TWICE A DAY Pantoprazole Sodium 20 MG Oral Tablet, Delayed Release 10/02/2021 Unknown ORAL ONCE A DAY 20 MG 730849 RxNorm TAKE 20 MG ORAL ONCE A DAY Sensipar 30MG Oral Tablet 10/02/2021 Unknown ORAL ONCE A DAY 30 MILLIGRAMS 861861 RxNorm TAKE 30 MILLIGRAMS ORAL ONCE A DAY Sertraline 50MG Oral Tablet 10/02/2021 Unknown ORAL TWICE A DAY 50 MILLIGRAMS 057204 RxNorm TAKE 50 MILLIGRAMS ORAL TWICE A DAY Tacrolimus 0.5MG Oral Capsule 10/02/2021 Unknown ORAL ONCE A DAY 0.5 MILLIGRAMS 678743 RxNorm TAKE 0.5 MILLIGRAMS ORAL ONCE A DAY Tacrolimus 1MG Oral Capsule 10/02/2021 Unknown ORAL ONCE A DAY 1 MILLIGRAMS 19830311 RxNorm TAKE 1 MILLIGRAMS ORAL ONCE A DAY Tylenol 325MG Oral Tablet 10/02/2021 Unknown ORAL NEEDED EVERY 4 HOURS 2 TABLET 821154 RxNorm TAKE 2 TABLET ORAL NEEDED EVERY [...] Unknown ORAL ONCE A DAY 5 MILLIGRAMS 864711 RxNorm TAKE 5 MILLIGRAMS ORAL ONCE A DAY risperiDONE 2MG Oral Tablet 10/02/2021 Unknown ORAL TWICE A DAY 5 MILLIGRAMS 599406 RxNorm TAKE 5 MILLIGRAMS ORAL TWICE A [...] System CIPROFLOXACIN Active 2551 RxNorm PARICALCITOL Active 81997 RxNorm ZEMPLAR Active 670558 RxNorm Plan of Treatment Bone Density Dexa 11/26/2022 Bone Density Dexa 12/14/2024 Encounters Encounter Diagnosis Start Date Code Code 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
--- OUTSIDE RECORDS SUMMARY | 2025-01-31 08:57 | XMS_ITS ---
Author Organization Unknown Address [address] [place] [phone] Phone Care Team Providers Care Scientific Helper Name Role Phone CONSTANTIN SNEED Attending Unavailable [...] RENAL FUNCTION PANEL - Colle ct Date/Time: 12/03/2024 07:35 [facility] ID: [id number] [place], [place], [id number] LOINC: 12623-3 Test Value Unit Reference Range Code Code System Flag FASTING? NO BUN 15 mg/dL L=7 H=20 3094-0 LOINC CREATININE 0.80 mg/dL L=0.66 H=1.25 2160-0 LOINC GLUCOSE 97 mg/dL L=74 H=106 2345-7 LOINC CALCIUM 9.1 mg/dL L=8.3 H=10.5 99953-5 LOINC SODIUM 143 mmol/L L=132 H=144 2951-2 LOINC POTASSIUM 4.1 mmol/L L=3.5 H=5.1 2823-3 LOINC CHLORIDE 108 mmol/L L=98 H=107 2075-0 LOINC H CO2 24.0 mmol/L L=22.0 H=30.0 8-9 LOINC ANION GAP 15 L=10 H=20 38184-9 LOINC OSMOLALITY 297 mOs/kG L=280 H=296 21671-1 LOINC H BUN/CREAT 18.8 3097-3 LOINC PHOSPHORUS 3.0 mg/dL L=2.5 H=4.9 2777-1 LOINC ALBUMIN 4.3 G/dL L=3.5 H=5.0 1751-7 LOINC AGE 49 38409-5 LOINC eGFR NON-AFR 109 ml/min eGFR AFR AMER 132 ml/min BK BY PCR - QUANT(PLASMA) (R EF) - Collect Date/Time: 12/03/2024 07:35 [facility] ID: [id number] [place], [place], [id number] LOINC: 24797-9 Test Value Unit Reference Range Code Code System Flag BKV DNA, Quant PCR,Plasma Negative Negative 32718-7 LOINC log10 BKV DNA,Plasma TNP 47902-0 LOINC CBC W/ DIFF - Collect Date/T slime: 12/03/2024 07:35 [facility] ID: [id number] [place], [place], [id number] LOINC: 61505-3 Test Value Unit Reference Range Code Code System Flag WBC 4.9 10^3uL L=4.8 H=10.8 RBC 4.29 10^6uL L=4.60 H=6.20 L HEMOGLOBIN 12.9 g/dL L=14.0 H=18.0 718-7 LOINC L HEMATOCRIT 40.4 VOL% L=42.0 H=52.0 4544-3 LOINC L MCV 94.2 fL L=80.0 H=94.0 H MCH 30.1 pg L=27.0 H=32.0 MCHC 31.9 g/dL L=32.0 H=36.0 L PLATELETS 177 10^3uL L=100 H=400 64009-2 LOINC RDW 13.3 % L=11.7 H=15.5 %GRAN 62.2 % L=40.0 H=70.0 05721-8 LOINC %LYMPH 24.8 % L=20.0 H=45.0 736-9 LOINC %MONO 10.2 % L=2.0 H=10.0 03727-9 LOINC H %EOS 2.2 % L=0.0 H=6.0 713-8 LOINC %BASO 0.4 % L=0.0 H=3.0 706-2 LOINC #NEUT 3.1 10^3uL L=1.9 H=7.6 79202-4 LOINC #LYMPH 1.2 10^3uL L=0.9 H=4.9 41921-4 LOINC #MONO 0.5 10^3uL L=0.1 H=0.9 15126-7 LOINC #EOS 0.1 10^3uL L=0.0 H=0.6 712-0 LOINC #BASO 0.02 10^3uL L=0.00 H=0.10 67919-2 LOINC #IM GRANS 0.0 10^3uL L=0.0 H=7.0 16931-1 LOINC %IM GRANS 0.2 % L=0.0 H=5.0 81553-8 LOINC %NRB 0.0 L=0.0 H=0.2 19546-4 LOINC #NRB 0.000 L=0.000 H=0.012 70901-6 LOINC MANUAL DIFF NOT INDICATED RBC MORPH NOT INDICATED BK VIRUS - URINE QUANT BY PC R(REF) - Collect Date/Time: 12/03/2024 05:40 [facility] ID: [id number] [address] [place] [address], [id number] LOINC: 86157-4 Test Value Unit Reference Range Code Code System Flag BKV DNA, Quant PCR, Urine 337 Negative 39238-3 LOINC log10 BKV DNA, Urine 2.528 19921-5 LOINC MICROALBUMIN - Collect Date/ Time: 12/03/2024 05:40 [facility] ID: [id number] [address] [place] [address], [id number] LOINC: 46840-7 Test Value Unit Reference Range Code Code System Flag MICROALBUMIN 14.3 mg/L L=0.0 H=16.7 53194-6 LOINC UR CREATININE 43.60 mg/dL L=30.00 H=125 2161-8 LOINC MA/CR 32.8 mg/gCR Social History Type Status Start Date End Date Code Code Syst em Smoking History Never smoker (Never Smoked) 467043012 SNOMED CT Sex Male Medications Medication Start Date End Date Route Frequency Dose Code Code System Medication Instructions Home Meds Calcitriol 0.25MCG Oral Capsule, Liquid Filled 10/02/2021 Unknown ORAL THREE TIMES EVERY WEEK 0.25 MCG 708156 RxNorm TAKE 0.25 MCG ORAL THREE TIMES EVERY WEEK Fish Oil 1200 MG Oral Capsule, Liquid Filled 10/02/2021 Unknown ORAL TWICE A DAY 1200 MG 211247 RxNorm TAKE 1200 MG ORAL TWICE A DAY Metoprolol Succinate 25MG Oral Tablet, Extended Release 10/02/2021 Unknown ORAL TWICE A DAY 25 MILLIGRAMS 515439 RxNorm TAKE 25 MILLIGRAMS ORAL TWICE A DAY Mycophenolate Mofetil 250MG Oral Capsule 10/02/2021 Unknown ORAL TWICE A DAY 250 MILLIGRAMS 371280 RxNorm TAKE 250 MILLIGRAMS ORAL TWICE A DAY Mycophenolate Mofetil 500MG Oral Tablet 10/02/2021 Unknown ORAL TWICE A DAY 500 MILLIGRAMS 692295 RxNorm TAKE 500 MILLIGRAMS ORAL TWICE A DAY Pantoprazole Sodium 20 MG Oral Tablet, Delayed Release 10/02/2021 Unknown ORAL ONCE A DAY 20 MG 047717 RxNorm TAKE 20 MG ORAL ONCE A DAY Sensipar 30MG Oral Tablet 10/02/2021 Unknown ORAL ONCE A DAY 30 MILLIGRAMS 195475 RxNorm TAKE 30 MILLIGRAMS ORAL ONCE A DAY Sertraline 50MG Oral Tablet 10/02/2021 Unknown ORAL TWICE A DAY 50 MILLIGRAMS 195155 RxNorm TAKE 50 MILLIGRAMS ORAL TWICE A DAY Tacrolimus 0.5MG Oral Capsule 10/02/2021 Unknown ORAL ONCE A DAY 0.5 MILLIGRAMS 530614 RxNorm TAKE 0.5 MILLIGRAMS ORAL ONCE A DAY Tacrolimus 1MG Oral Capsule 10/02/2021 Unknown ORAL ONCE A DAY 1 MILLIGRAMS 19830311 RxNorm TAKE 1 MILLIGRAMS ORAL ONCE A DAY Tylenol 325MG Oral Tablet 10/02/2021 Unknown ORAL NEEDED EVERY 4 HOURS 2 TABLET 227317 RxNorm TAKE 2 TABLET ORAL NEEDED EVERY [...] Unknown ORAL ONCE A DAY 5 MILLIGRAMS 146682 RxNorm TAKE 5 MILLIGRAMS ORAL ONCE A DAY risperiDONE 2MG Oral Tablet 10/02/2021 Unknown ORAL TWICE A DAY 5 MILLIGRAMS 828091 RxNorm TAKE 5 MILLIGRAMS ORAL TWICE A [...] System CIPROFLOXACIN Active 2551 RxNorm PARICALCITOL Active 98487 RxNorm ZEMPLAR Active 978393 RxNorm Plan of Treatment Bone Density Dexa 11/26/2022 Bone Density Dexa 12/14/2024 Encounters Encounter Diagnosis Start Date Code Code Sys tem Kidney transplant status 12/03/2024 SN[facility] MED-CT Personal Care Team Section Performer Name Performer Role Active Date Inactive Da te
--- OUTSIDE RECORDS SUMMARY | 2025-01-31 08:57 | XMS_ITS | Continuity of Care Document ---
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 Disp 10 ml - Active TACROLIMUS (unknown strength) Not Available - Active SERTRALINE HCL (unknown strength) Not Available - Active SENSIPAR (unknown strength) Not Available - Active LAMOTRIGINE (unknown strength) Not Available - Active PREDNISONE (unknown strength) Not Available - Active RISPERIDONE (unknown strength) take 1 tablet by oral route 2 times every day Not Available - Active Durezol 0.05 % Eye Drops apply 1 gtt BID in operative eye BID x 9 days starting 2 days before surgery and for 6 weeks after surgery - No Longer Active use if covered by IPA in place of Prednisilone acetate per RML; written RX to pt's caregiver ketorolac 0.4 % Eye Drops instill i gt to operative eye QID x 9 days starting 2 days before surgery - No Longer Active ofloxacin 0.3 % Eye Drops instill i gt to operative eye QID x 9 days starting 2 days before surgery - No Longer Active Procedures Procedure Date Postoperative Exam Postoperative Exam CATARACT SURG W/IOL, SURGERY CATARACT SURG W/IOL, POST OP CARE IOL MASTER, PROF COMP ONLY Postoperative Exam Postoperative Exam CATARACT SURG W/IOL, SURGERY CATARACT SURG W/IOL, POST OP CARE EYE EXAM, NEW PATIENT MEDICAL 3 REFRACTION NO UPDATE ERX Post Operative Kit / Medical Supply By P rescription IOL MASTER Advance Directives Directive Yes / No Effective Date File Name No Information Encounters Encounter Description Practice Location Reason(s) For Visit Diagnoses Date Provider Providers Copied on Encounter Postoperative Exam [facility], [address] [place] [address], [id number] , [place] [phone] [facility] no problems with V/A and no complaints (chief complaint) Lens replaced by other meansCataract extraction status 3 Prasad Jacome. [address] [place] [address], [id number], [place]. tel:[phone] Postoperative Exam [facility], [address] [place] [address], [id number] , [place] [phone] [facility] vision is better OU (chief complaint)n o pain/discom fort OU (chief complaint)v ision is better (chief complaint)n o pain/discom fort (chief complaint) No Information 3 No Information [facility], [address] [place] [address], [id number] , [place] tel:[phone] [facility] No Information 3 Prasad Jacome. [address] [place] [address], [id number], [place]. tel:[phone] Referring Provider: Tad Galicia, [address] [place] [address], [address], [place], [address] . tel:[phone] [facility], [address] [place] [address], [id number] , tel:[phone] [facility] No Information 3 Prasad Jacome. [address] [place] [address], [id number], [place]. tel:[phone] Referring Provider: Tad Galicia [address] [place] [address], [address], [place], [address] . tel:[phone] Postoperative Exam [facility], [address] [place] [address], [id number] , [place] tel:[phone] [facility] no problems with V/A and no complaints (chief complaint) Lens replaced by other meansCataract extraction statusPosterior subcapsular polar senile cataract 3 Prasad Jacome. [address] [place] [address], [id number], [place]. tel:[phone] Postoperative Exam [facility], [address] [place] [address], [id number] , [place] tel:[phone] [facility] vision is improved (chief complaint)r eports some soreness OD (chief complaint) No Information No Information [facility], [address] [place] [address], [id number] , [place] tel:[phone] [facility] No Information 3 Prasad Jacome. [address] [place] [address], [id number], [place]. tel:[phone] Referring Provider: Lindsey Jerome0 [facility], [address], [place], [address] . tel:[phone] [facility], [address] [place] [address], [id number] , [place] tel:[phone] [facility] blurry vision (chief complaint) Nystagmus, unspecified 3 Prasad Jacome. [address] [place] [address], [id number], [place]. tel:[phone] Other Provider: Lindsey Jerome0 [facility], [address], [place], [address] . tel:[phone] erring Provider: Ayaz Gan, [address] [place], [address] . tel:[phone] Family History Family Member Type Diagnosis Age At Onset No Information Payers Payer name Insurance type Covered republican ID Authoriza tion(s) No Information Social History Type Description Quantity Date Captured Comments Alcohol Use Details Unknown Caffeine Use Details Unknown Tobacco Use Status No Information Smoking Status No Information Sex Male Chief Complaint And Reason For Visit From encounter dated '05/24/2013 13:15'. no problems with V/A and no complaints (chief complaint) Reason For Referral Reason For Referral No Information History Of Present Illness Encounter Date Complaint History Of Prese nt Illness vision is better vision is aline r OU no pain/discomfort no pain/disco mfort OU reports some soreness OD Functional Status Date Functional Assessmen t No Information Instructions Date Instruction Additional Infor mation - per Dr. Galicia Related to Catar act extraction status Lens replaced by oth er means OU. Condition: established, stable. Cataract extraction status OU. Condition: established, stable. - Both lens implants look fine. Cont. Pred Forte gtt BID OU x 6 weeks after surgery. Okay to return to Dr. Galicia for routine care. Related to Cataract extraction status - 05/24 with RML for PO2 (Auto T&D) Dr. Galicia ref. Related to KPE c PC IOL (std) - per surgery Related to Lens replaced by other means Lens replaced by oth er means OD. Condition: established, stable. Cataract extraction status OD. Condition: established, stable. PSC Cataract OS. Condition: will continue to monitor. - Lens implant looks great OD. Cont. Prednisilone acetate gtt BID OD x 6 weeks from surgery (Caregiver stated Pred is not covered by IPA; wrote RX for Durezol gtt BID to take the place of Prednisilone acetate if covered). Okay to proceed with OS surgery as scheduled. Related to Lens replaced by other means - 05/03 with RML for PO2 (Auto T&D) Dr. Galicia ref. Related to KPE c PC IOL (std) - per sg. Related to Nysta gmus, unspecified PSC Cataract OU. Con dition: established, worsening. Symptoms: may improve with surgery. - Cataracts are progressing OU, the best option for improved vision is cataract sg. Will do OD first, then OS 2 weeks later. Answered questions in detail, pt and caregiver state they understand. explained cataract surgery c pt using eye model. Risks include bleeding, swelling, infection, loss of vision, need for more surgery. Standard IOL: will need gls dist & near p surg. Related to Nystagmus, unspecified Assessments Type Assessment Date No Information Patient Care Teams Name Effective Dates (start - stop) Status Members No Information
--- OUTSIDE RECORDS SUMMARY | 2025-01-31 08:57 | XMS_ITS ---
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 Problems This patient has no known problems.
--- OUTSIDE RECORDS SUMMARY | 2025-01-31 08:57 | XMS_ITS | Clinical Summary ---
Author Organization [facility] Address [address] [place] [address] Phone Care Team Providers Care Events Director Name Role Phone Jon Mike MD Primary Care Provider [phone] Social History Tobacco Use Types Packs/Day Years Used Date Smoking Tobacco: Never Assessed Sex and Gender Information Value Date Recorded Sex Assigned at Not on file Legal Sex Male 7:04 PM CDT Gender Identity Not on file Sexual Orientation Not on file Plan of Treatment Health Maintenance Due Date Last Done Comments Hepatitis C Virus (HCV) Screening 1974 TdaP Immunization 1974 Hepatitis B Immunization (1 of 3 - 19+ 3-dose series) 1993 Colonoscopy 2019 Colorectal Cancer Screening 2019 Influenza Immunization (#1) 2024 SARS-COV-2 Immunization ( season) 2024 Cologuard 2024 Immunochemical Fecal Occult Blood 2024 Pneumococcal Immunization (5 0+ years) (1 of 1 - PCV) 2024 Zoster Immunization (1 of 2) 2024 Respiratory Syncytial Virus (RSV) Immunization (Adult) (1 - 1-dose 75+ series) 2049 Meningococcal Immunization (ACWY) Aged Out No longer eligible based on patient's age to complete this topic Pneumococcal Immunization Combined Aged Out No longer eligible based on patient's age to complete this topic Rotavirus Immunization Aged Out No lo nger eligible based on patient's age to complete this topic Insurance MEDICARE [place]ICAID [place] Care Teams Events Director Relationship Specialty Start Date End Date Jon Mike MD PCP - General Family Medicine 11/28/15
== END 2025-01-31 08:49 | disposition home or self-care (01) ==
LOC: ANHAUDIO 08:50
PROVIDERS: PCP Family Medicine; Visit Provider Family Medicine
DX: Z01.118 Encounter for examination of ears and hearing with other abnormal findings (principal); H90.3 Sensorineural hearing loss, bilateral; H74.8X3 Other specified disorders of middle ear and mastoid, bilateral; H61.22 Impacted cerumen, left ear; H73.93 Unspecified disorder of tympanic membrane, bilateral
CPT/HCPCS: 92553; 92555; 92567